=== PATIENT | male | born 1980 | race Caucasian/White ===

== ENCOUNTER 2017-02-26 15:42 | Emergency (ER) | payer MEDICAID ==
[~2017-02-26 15:42] MED LIST: AMBI5TAB PO; DOXA1 PO; FURO40TA PO; METO50TA PO; MORP20SO2 PO; MS C30TA5 PO; SENN8.6T8; SPIR50 PO; XANA1TAB6 PO
[2017-02-26 15:51] VITALS: BP 125/91; PULSE 124; RESP 16; TEMP 97.5; O2SAT 95
[2017-02-26 17:09] LABS: AUTOMATED NEUTROPHIL # 3.9 TH/MM3 (1.8-7.7); BASOPHIL % 0.6 % (0.0-2.0); EOSINOPHIL # 0.1 TH/MM3 (0-0.4); EOSINOPHIL % 1.6 % (0.0-4.0); HEMATOCRIT 40.8 % (39.0-51.0); HEMO FLAGS DIFF FINAL; LYMPH % 19.2 % (9.0-44.0); LYMPHOCYTE # 1.1 TH/MM3 (1.0-4.8); MEAN CELL VOLUME 84.2 FL (80.0-100.0); MEAN CORPUSCULAR HEMOGLOBIN 27.5 PG (27.0-34.0); MEAN CORPUSCULAR HGB CONC 32.7 % (32.0-36.0); MONO % 8.3 % (0.0-8.0); NEUT % 70.3 % (16.0-70.0); PLATELET COUNT 154 TH/MM3 (150-450); RED BLOOD COUNT 4.84 MIL/MM3 (4.50-5.90); RED CELL DISTRIBUTION WIDTH 16.9 % (11.6-17.2); WHITE BLOOD COUNT 5.6 TH/MM3 (4.0-11.0)
[2017-02-26 17:31] LABS: AMPHETAMINE, URINE NEG (NEG); BARBITURATES, URINE NEG (NEG); COCAINE, URINE NEG (NEG)
--- NOTE | 2017-02-26 17:45 | PD ---
HPI Chief Complaint: Psychiatric Symptoms Time Seen by Provider: 17:31 Travel History International Travel<30 days: No Contact w/Intl Traveler<30days: No Traveled to known affect area: No History of Present Illness HPI Patient 36-year-old male presents emergency Department under Vazquez act for evaluation of suicidal threat with a knife today. According the Vazquez act he was seen by hospice nurse holding a knife to his wrists and threatening suicide. She stepped out to call police who found him with a knife and placed him under Vazquez act. On arrival to the emergency department the patient states he has multiple medical problems including CHF and COPD which she states is at his baseline currently. He states he is always tachycardic at about 110. He denies suicidal intent today. Denies any physical complaints at this time. PFSH Past Medical History Anemia: Yes Asthma: Yes Anxiety: Yes Cancer: No Cardiovascular Problems: Yes Congestive Heart Failure: Yes Diabetes: Yes ("I AM NOT TAKING ANY MEDICATIONS") Diminished Hearing: No Genitourinary: Yes Hiatal Hernia: Yes (REPAIRED) Immune Disorder: No Kidney Stones: Yes Musculoskeletal: Yes (CHRONIC BACK) Neurologic: Yes Psychiatric: Yes Reproductive: No Respiratory: Yes Seizures: Yes (QUESTIONABLE SEIZURE) Past Surgical History Abdominal Surgery: Yes (HERNIA REPAIR, CHOLECYSTECTOMY) Cholecystectomy: Yes Other Surgery: Yes (HERNIA REPAIR AND EXPLORATORY LAP. LYMPH NODE BX NEG FOR LYMPHOMA.) Social History Alcohol Use: Yes (2 BEERS A WK) Tobacco Use: Yes (1 PPD) Substance Use: No (PT DENIES) Allergies-Medications (Allergen,Severity, Reaction): Coded Allergies: Penicillin (Unverified Allergy, Intermediate, RASH, SWELLING, 12/24/15) Darvocet-N 100 (Verified Allergy, Mild, ITCHING, 12/24/15) Reported Meds & Prescriptions Reported Meds & Active Scripts Active Reported Senna S (Sennosides-Docusate Sodium) 1 Tab Tab BID PRN Ms Contin (Morphine Sulfate) 30 Mg Tab 30 Mg PO Q8H Morphine Sulfate 20 Mg/Ml Gosia 20 Mg PO PRN Aldactone 50 Mg Tab (Spironolactone) 50 Mg Tab 50 Mg PO BID Ambien (Zolpidem Tartrate) 5 Mg Tab 5 Mg PO HS PRN Doxazosin Mesylate 2 mg (Doxazosin Mesylate) 2 Mg Tab 1 Tab PO DAILY Metoprolol Tartrate 50 mg (Metoprolol Tartrate) 50 Mg Tab 50 Mg PO DAILY Furosemide 40 Mg Tab 40 Mg PO DAILY Xanax 1 mg (Alprazolam) Alprazolam 1 mg Tab 2 Tab PO Q6H Review of Systems Except as stated in HPI: all other systems reviewed are Neg Physical Exam Narrative GENERAL: Well-developed well-nourished in no obvious distress. SKIN: No lacerations no step person soon as trunk abdomen pelvis of her extremities. His volar aspects of his forearms are covered in red pain. HEAD: Atraumatic. Normocephalic. EYES: Pupils equal and round. No scleral icterus. No injection or drainage. ENT: No nasal bleeding or discharge. Mucous membranes pink and moist. NECK: Trachea midline. No JVD. CARDIOVASCULAR: Regular rate and rhythm. No murmur appreciated. RESPIRATORY: No accessory muscle use. Coarse breath sounds bilaterally. Breath sounds equal bilaterally. On my assessment he is saturating 97% on room air and has a heart rate of 107. GASTROINTESTINAL: Abdomen soft, non-tender, nondistended. Hepatic and splenic margins not palpable. MUSCULOSKELETAL: No obvious deformities. No clubbing. No cyanosis. No edema. NEUROLOGICAL: Awake and alert. No obvious cranial nerve deficits. Motor grossly within normal limits. Normal speech. PSYCHIATRIC: Nice suicidal homicidal ideation, insight and judgment fair. States his free country and he is going to leave. Data Data Last Documented VS Vital Signs Date Time Temp Pulse Resp B/P Pulse Ox O2 Delivery O2 Flow Rate FiO2 02/26/17 19:15 71 18 136/72 97 Room Air 02/26/17 15:51 97.5 Orders Complete Blood Count With Diff (02/26/17 15:54) Comprehensive Metabolic Panel (02/26/17 15:54) Psych Screen (02/26/17 15:54) Drug Screen, Random Urine (02/26/17 15:54) Alcohol (Ethanol) (02/26/17 15:54) Chest, Single Ap (02/26/17 ) Labs Laboratory Tests Test 02/26/17 02/26/17 16:05 16:15 Urine Opiates Screen NEG Urine Barbiturates Screen NEG Urine Amphetamines Screen NEG Urine Benzodiazepines Screen POS Urine Cocaine Screen NEG Urine Cannabinoids Screen NEG White Blood Count 5.6 TH/MM3 Red Blood Count 4.84 MIL/MM3 Hemoglobin 13.3 GM/DL Hematocrit 40.8 % Mean Corpuscular Volume 84.2 FL Mean Corpuscular Hemoglobin 27.5 PG Mean Corpuscular Hemoglobin 32.7 % Concent Red Cell Distribution Width 16.9 % Platelet Count 154 TH/MM3 Mean Platelet Volume 8.0 FL Neutrophils (%) (Auto) 70.3 % Lymphocytes (%) (Auto) 19.2 % Monocytes (%) (Auto) 8.3 % Eosinophils (%) (Auto) 1.6 % Basophils (%) (Auto) 0.6 % Neutrophils # (Auto) 3.9 TH/MM3 Lymphocytes # (Auto) 1.1 TH/MM3 Monocytes # (Auto) 0.5 TH/MM3 Eosinophils # (Auto) 0.1 TH/MM3 Basophils # (Auto) 0.0 TH/MM3 CBC Comment DIFF FINAL Differential Comment Sodium Level 138 MEQ/L Potassium Level 4.0 MEQ/L Chloride Level 105 MEQ/L Carbon Dioxide Level 25.4 MEQ/L Anion Gap 8 MEQ/L Blood Urea Nitrogen 12 MG/DL Creatinine 0.85 MG/DL Estimat Glomerular Filtration 101 ML/MIN Rate Random Glucose 87 MG/DL Calcium Level 9.1 MG/DL Total Bilirubin 0.9 MG/DL Aspartate Amino Transf 21 U/L (AST/SGOT) Alanine Aminotransferase 26 U/L (ALT/SGPT) Alkaline Phosphatase 190 U/L Total Protein 9.0 GM/DL Albumin 4.0 GM/DL Ethyl Alcohol Level LESS THAN 3 MG/DL MDM Medical Decision Making Medical Screen Exam Complete: Yes Emergency Medical Condition: Yes Differential Diagnosis Suicide attempt, suicidal ideation, poor social circumstance, chronic COPD. Narrative Course Patient is a 36-year-old male presents emergency department for evaluation under Vazquez act. Patient is angry when informed that he is Vazquez acted and will have to see psychiatry. He states that he had the knife flat against his wrist and was not planning on cutting himself. He states people couldn't take Joke. According to Vazquez act documentation he was released from hospice today. He does have some rhonchorous breath sounds but declined a breathing treatment when offered. He is satting well on room air. Repeat vital signs are more acceptable. His chest x-ray shows what appears to be a poor inspiratory film with interstitial pattern. He is in no obvious respiratory distress. Upon being roomed in delta pod he has ambulated from the stretcher to the door multiple times and slamming it shot very angry at the fact that he is Vazquez acted. He is cooperative and easily redirected back to the stretcher. After labs and chest x-ray obtained the patient is medically cleared for psychiatric evaluation and disposition. He can follow up his chronic COPD with his primary care physician or the hospice doctor. Diagnosis Primary Impression: Suicidal behavior with attempted self-injury Condition: Stable Evan Hutchinson MD Feb 26, 2017 17:45
[2017-02-26 17:46] LABS: ALT (GPT) 26 U/L (12-78); ANION GAP 8 MEQ/L (5-15); AST (GOT) 21 U/L (15-37); BICARBONATE 25.4 MEQ/L (21.0-32.0); BLOOD UREA NITROGEN 12 MG/DL (7-18); CHLORIDE 105 MEQ/L (98-107); GLOMERULAR FILTRATION RATE 101 ML/MIN (>89); SODIUM (NA) 138 MEQ/L (136-145)
[2017-02-26 17:48] LABS: ALKALINE PHOSPHATASE 190 U/L (45-117); TOTAL BILIRUBIN ADULT 0.9 MG/DL (0.2-1.0)
--- NOTE | 2017-02-26 18:45 | RADRPT ---
EXAM DATE/TIME: 02/26/2017 18:14 [facility] COMPARISON: CHEST SINGLE AP, December 24, 2015, 13:36. INDICATIONS : Chest pain, shortness of breath for 24 hours MEDICAL HISTORY : Congestive heart failure. SURGICAL HISTORY : None. ENCOUNTER: Initial ACUITY: 1 day PAIN SCORE: 5/10 LOCATION: Bilateral chest FINDINGS: A single view of the chest demonstrates patchy airspace disease bilaterally which is a new finding si nce December 2015. Heart size does appear enlarged. The findings are nonspecific. The differential diagnos is includes edema and infection as well as hypersensitivity type reaction. CONCLUSION: Bilateral patchy airspace disease with some interstitial prominence. There is also cardiomegaly. The findings are nonspecific but the differential diagnosis includes edema, infection. Congestive heart f ailure could give this appearance especially given the history of such. Turner Angelo MD on February 26, 2017 at 18:41 Board Certified Radiologist. This report was verified electronically.
[2017-02-26 19:15] VITALS: BP 136/72; PULSE 71; RESP 18; O2SAT 97
[2017-02-26] MEDS ORDERED: diphenhydrAMINE HCL 50 MG/ML VIAL ONE (20:28)
[2017-02-26] MEDS ORDERED: HALOPERIDOL LACTATE 5 MG/ML AMP IM ONE (21:00)
[2017-02-26] MEDS ORDERED: diphenhydrAMINE HCL 50 MG/ML VIAL IV PUSH ONE (21:00)
[2017-02-27 02:18] VITALS: BP 114/79; PULSE 101; RESP 18; O2SAT 97
[2017-02-27 06:20] VITALS: BP 117/80; PULSE 104; RESP 20; O2SAT 97
[2017-02-27 10:00] VITALS: BP 109/72; PULSE 94; RESP 20
--- NOTE | 2017-02-27 13:40 | PD.PSY.CON ---
Provisional Diagnosis Admission Date [place]. Adjustment disorder with mixed disturbances of emotion and conduct History of Present Illness Service Psychiatry Consult Requested By EDMD Reason for Consult Vazquez act Primary Care Physician Rissa Puckett MD HPI Patient is a 36-year-old white male who comes here under Vazquez act by the [place] [employer] dated 02/18/17 at 1508 p.m. that document reviewed essentially stating that law enforcement was dispatched to [address] [place] [address] in reference to these suicidal person being called in by the hospice nurse (Brianne Lamb) upon arrival of the federal district law clerk make contact with that nurse will inform the officer that today she was at the location and eye contact with the patient will contact with the patient the nurse informed the patient that hospice is being canceled on him. Patient does not take the news well started making statements about ending his life. When the nurse asked how he told with a knife the nurse then stated she left the department for safety and to call the police as the nurses walking out of the apartment patient held a knife up to his wrists. Patient seen screened in the ED urine toxicology positive for benzodiazepines. At the present time patient sitting quietly in his room on J pod nurse aGudencio present throughout session. Patient has been on hospice because of life-threatening sequelae to his long use of intravenous Dilaudid. That ended a few years ago. He now lives directed room with his . He states that hospice told him that he was not in imminent danger of dying in the next 3 months so they canceled their services. This upset him quite a bit cause them to get angry and makes somewhat impulsive statements. He does denies suicidality homicidality voices or visions. He denies alcohol or drug use. Patient does see a psychiatrist in the community does have counseling. He does have a supportive . At the present time patient does not meet Vazquez act criteria I will lift the Vazquez act. It is okay by psychiatry for patient to be discharged to himself. No Rx by me. He may continue his medications per his outpatient psychiatrist. And continue mental health follow-up through that psychiatrist and counseling Review of Systems Constitutional: DENIES: Diaphoretic episodes, Fatigue, Fever, Weight gain, Weight loss, Chills, Dizziness, Change in appetite, Night Sweats Endocrine: DENIES: Heat/cold intolerance, Polydipsia, Polyuria, Polyphagia Eyes: DENIES: Blurred vision, Diplopia, Eye inflammation, Eye pain, Vision loss , Photosensitivity, Double Vision Ears, nose, mouth, throat: DENIES: Tinnitus, Hearing loss, Vertigo, Nasal discharge, Oral lesions, Throat pain, Hoarseness, Ear Pain, Running Nose, Epistaxis, Sinus Pain, Toothache, Odynophagia Respiratory: DENIES: Apneas, Cough, Snoring, Wheezing, Hemoptysis, Sputum production, Shortness of breath Cardiovascular: DENIES: Chest pain, Palpitations, Syncope, Dyspnea on Exertion , PND, Lower Extremity Edema, Orthopnea, Claudication Gastrointestinal: DENIES: Abdominal pain, Black stools, Bloody stools, Constipation, Diarrhea, Nausea, Vomiting, Difficulty Swallowing, Anorexia Genitourinary: DENIES: Sexual dysfunction, Urinary frequency, Urinary incontinence, Urgency, Hematuria, Dysuria, Nocturia, Penile Discharge, Testicular Pain, Testicular Swelling Musculoskeletal: DENIES: Joint pain, Muscle aches, Stiffness, Joint Swelling, Back pain, Neck pain Integumentary: DENIES: Abnormal pigmentation, Nail changes, Pruritus, Rash Hematologic/lymphatic: DENIES: Bruising, Lymphadenopathy Neurologic: DENIES: Abnormal gait, Headache, Localized weakness, Paresthesias, Seizures, Speech Problems, Tremor, Poor Balance Psychiatric: COMPLAINS OF: Anxiety Past Family Social History Coded Allergies: Penicillin (Unverified Allergy, Intermediate, RASH, SWELLING, 12/24/15) Darvocet-N 100 (Verified Allergy, Mild, ITCHING, 12/24/15) Past Medical History And somewhat irritable multiple complex please see ED documentation Unable to Obtain Active Prescriptions or Reported Meds Family History Denies any significant addictions mental health and family Social History Patient lives in boarding house with his Patient's Strengths (min. 2) Patient verbal atelectasis health care cooperative Physical Exam Patient seen screened in ED exam reviewed and agreed with the present time patient laying quietly in his bed in J pod Gloria sitting up for a glucose of some back pain. He is otherwise in no acute distress. He is in no respiratory distress. No complaints of abdominal pain. Patient moving all 4 extremities without difficulty. No abnormal motor movements noted Vital Signs Vital Signs Date Time Temp Pulse Resp B/P Pulse Ox O2 Delivery O2 Flow Rate FiO2 02/27/17 10:00 94 20 109/72 Room Air 02/27/17 06:20 97 02/26/17 15:51 97.5 Mental Status Examination Alert oriented frail-appearing somewhat disheveled white male multiple tattoos noted, is cooperative is somewhat guarded, with poor to fair eye contact Appearance Somewhat disheveled Speech: Unremarkable Orientation: x3 Memory: Unremarkable Thought Process: Logical Thought Content: Unremarkable Language Fair Fund of Knowledge Fair Hallucination Type: None (denies) Attention and Concentration: Other (fair) Suicidal Ideation: No (denies) Previous Suicide Attempts: No Homicidal Ideation: No (denies) Previous Homicide Attempts: No Insight: Poor Judgment: WNL (fair) Affect: Other (slight decreased range intensity) Mood: Euthymic (to mildly dysphoric) Motor Activity: Normal gait Assessment & Plan Problem List: (1) Adjustment disorder with mixed disturbance of emotions and conduct ICD Code: F43.25 Assessment & Plan Estimated LOS: days patient does not meet Vazquez criteria will lift Vazquez act. Is okay by psych for discharge or medically clear and stable. No Rx by me. Patient may continue his own home scheduled medications. Follow-up private psychiatrist in community Discharge Planning See above Request HC Surrog/Guard Advoc?: No Michael Rojas MD Feb 27, 2017 13:40
== END 2017-02-27 15:54 | disposition home or self-care (01) ==
LOC: NEDAMB 15:42 → NEPJ 02-27 15:54
DX: R45.851 Suicidal ideations (principal); F43.25 Adjustment disorder with mixed disturbance of emotions and conduct; R00.0 Tachycardia, unspecified; E11.9 Type 2 diabetes mellitus without complications; F17.200 Nicotine dependence, unspecified, uncomplicated; Z79.899 Other long term (current) drug therapy; Z86.2 Personal history of diseases of the blood and blood-forming organs and certain disorders involving the immune mechanism; Z87.09 Personal history of other diseases of the respiratory system; Z86.59 Personal history of other mental and behavioral disorders; Z87.448 Personal history of other diseases of urinary system; Z87.39 Personal history of other diseases of the musculoskeletal system and connective tissue; Z86.69 Personal history of other diseases of the nervous system and sense organs
CPT/HCPCS: 71010; 80053; 80307; 85025; 96372; 96374; 99284; J1200; J1630

== ENCOUNTER 2017-03-05 18:19 | Emergency (ER) | payer MEDICAID ==
[~2017-03-05] VITALS: Ht 175.3 cm; Wt 80.0 kg
[2017-03-05 18:22] VITALS: BP 129/84; PULSE 114; RESP 17; TEMP 98.4; O2SAT 98
[2017-03-05 19:41] VITALS: O2SAT 97
--- NOTE | 2017-03-05 19:44 | PD ---
HPI Chief Complaint: Chest Pain Time Seen by Provider: 19:27 Travel History International Travel<30 days: No Contact w/Intl Traveler<30days: No Traveled to known affect area: No History of Present Illness HPI 36-year-old male presents with 4 day history of chest pain that feels like pressure on the left side of his chest. He denies concurrent symptoms. He states he went to [facility] yesterday and was told he was gonna be admitted but then he got discharged. He states he was on hospice but his certificate so he is waiting for it to be reinstated. He states that he has heart failure in this is why he is on that. He states he hasn't used IV drugs May 2015. He states he feels worse when he moves around. He states he switched cardiovascular surgeons to someone in [place]. He is a poor historian which limits details PFSH Past Medical History Narrative Medical By review of records Anemia: Yes Asthma: Yes Anxiety: Yes Cancer: No Cardiovascular Problems: Yes Congestive Heart Failure: Yes Diabetes: Yes Patient Takes Glucophage: No Diminished Hearing: No Genitourinary: Yes Hiatal Hernia: Yes (REPAIRED) Immune Disorder: No Kidney Stones: Yes Musculoskeletal: Yes (CHRONIC BACK) Neurologic: Yes Psychiatric: Yes Reproductive: No Respiratory: Yes Seizures: Yes Tetanus Vaccination: < 5 Years Influenza Vaccination: No Past Surgical History Abdominal Surgery: Yes (HERNIA REPAIR, CHOLECYSTECTOMY) Cholecystectomy: Yes Other Surgery: Yes (HERNIA REPAIR AND EXPLORATORY LAP. LYMPH NODE BX NEG FOR LYMPHOMA.) Social History Alcohol Use: Yes (2 BEERS A WK) Tobacco Use: Yes (1 PPD) Substance Use: No (HX OF) Allergies-Medications (Allergen,Severity, Reaction): Coded Allergies: Penicillin (Unverified Allergy, Intermediate, RASH, SWELLING, 03/05/17) Darvocet-N 100 (Verified Allergy, Mild, ITCHING, 03/05/17) Reported Meds & Prescriptions Reported Meds & Active Scripts Active Active Prescriptions or Reported Medications Unobtainable Review of Systems ROS Limitations: Poor Historian Except as stated in HPI: all other systems reviewed are Neg Physical Exam Exam Limitations: Poor Historian Narrative GENERAL: Well-nourished, well-developed patient. SKIN: Warm and dry. HEAD: Normocephalic and atraumatic. EYES: No injection or drainage. ENT: No nasal drainage noted. NECK: Supple, trachea midline. CARDIOVASCULAR: Regular rate and rhythm RESPIRATORY: Breath sounds equal bilaterally. No accessory muscle use. GASTROINTESTINAL: Abdomen soft, non-tender NEUROLOGICAL: Awake. Motor and sensory grossly within normal limits. Normal speech. Data Data Last Documented VS Vital Signs Date Time Temp Pulse Resp B/P Pulse Ox O2 Delivery O2 Flow Rate FiO2 03/05/17 21:10 86 18 125/78 100 Nasal Cannula 2 03/05/17 18:22 98.4 Orders Electrocardiogram (03/05/17 19:27) Complete Blood Count With Diff (03/05/17 19:27) Comprehensive Metabolic Panel (03/05/17 19:27) Prothrombin Time / Inr (Pt) (03/05/17 19:27) Act Partial Throm Time (Ptt) (03/05/17 19:27) Lactic Acid Sepsis Protocol (03/05/17 19:27) Magnesium (Mg) (03/05/17 19:27) Phosphorus (Po4) (03/05/17 19:27) Ckmb (Isoenzyme) Profile (03/05/17 19:27) Troponin I (03/05/17 19:27) Urinalysis - C+S If Indicated (03/05/17 19:27) Blood Culture (03/05/17 19:27) Chest, Single Ap (03/05/17 19:27) Blood Glucose (03/05/17 19:27) Ecg Monitoring (03/05/17 19:27) Iv Access Insert/Monitor (03/05/17 19:27) Oximetry (03/05/17 19:27) Oxygen Administration (03/05/17 19:27) B-Type Natriuretic Peptide (03/05/17 19:27) Vascular Access Team Consult/P PRN (03/05/17 19:35) Vascular Poc Ultrasound (03/05/17 ) Labs Laboratory Tests Test 03/05/17 03/05/17 10:15 20:05 Urine Color YELLOW Urine Turbidity CLEAR Urine pH 6.0 Urine Specific [place] 1.020 Urine Protein TRACE mg/dL Urine Glucose (UA) NEG mg/dL Urine Ketones NEG mg/dL Urine Occult Blood NEG Urine Nitrite NEG Urine Bilirubin NEG Urine Urobilinogen 4.0 MG/DL Urine Leukocyte Esterase NEG Urine WBC 1 /hpf Microscopic Urinalysis Comment CATH-CULT NOT IND White Blood Count 3.9 TH/MM3 Red Blood Count 4.35 MIL/MM3 Hemoglobin 11.7 GM/DL Hematocrit 36.3 % Mean Corpuscular Volume 83.4 FL Mean Corpuscular Hemoglobin 27.0 PG Mean Corpuscular Hemoglobin 32.4 % Concent Red Cell Distribution Width 16.7 % Platelet Count 133 TH/MM3 Mean Platelet Volume 8.3 FL Neutrophils (%) (Auto) 61.4 % Lymphocytes (%) (Auto) 25.2 % Monocytes (%) (Auto) 11.3 % Eosinophils (%) (Auto) 1.2 % Basophils (%) (Auto) 0.9 % Neutrophils # (Auto) 2.4 TH/MM3 Lymphocytes # (Auto) 1.0 TH/MM3 Monocytes # (Auto) 0.4 TH/MM3 Eosinophils # (Auto) 0.0 TH/MM3 Basophils # (Auto) 0.0 TH/MM3 CBC Comment DIFF FINAL Differential Comment Prothrombin Time 12.2 SEC Prothromb Time International 1.1 RATIO Ratio Activated Partial 33.6 SEC Thromboplast Time Sodium Level 136 MEQ/L Potassium Level 3.4 MEQ/L Chloride Level 103 MEQ/L Carbon Dioxide Level 23.8 MEQ/L Anion Gap 9 MEQ/L Blood Urea Nitrogen 8 MG/DL Creatinine 0.90 MG/DL Estimat Glomerular Filtration 95 ML/MIN Rate Random Glucose 99 MG/DL Lactic Acid Level 1.4 mmol/L Calcium Level 8.5 MG/DL Phosphorus Level 3.1 MG/DL Magnesium Level 2.0 MG/DL Total Bilirubin 0.9 MG/DL Aspartate Amino Transf 18 U/L (AST/SGOT) Alanine Aminotransferase 23 U/L (ALT/SGPT) Alkaline Phosphatase 185 U/L Total Creatine Kinase 32 U/L Troponin I LESS THAN 0.02 NG/ML B-Type Natriuretic Peptide 134 PG/ML Total Protein 7.8 GM/DL Albumin 3.4 GM/DL MDM Medical Decision Making Medical Screen Exam Complete: Yes Emergency Medical Condition: Yes Medical Record Reviewed: Yes (past history confirmed, recent BA visit) Interpretation(s) CBC & BMP Diagram 03/05/17 20:05 Last 24 hours Impressions Chest X-Ray 03/05/171926 Signed Impressions: Service Date/Time: Sunday, March 05, 2017 19:37 - CONCLUSION: The lungs are clear. Italo Hensley MD Differential Diagnosis Endocarditis, gastritis, musculoskeletal, atypical cardiac, CHF exacerbation Narrative Course Will check blood work, chest x-ray, EKG and reevaluate 950 patient wants to leave ama, nurse at bedside, AMA: The risks of leaving against medical advice without further evaluation treatment were discussed with the patient. These risks include cardiac dysfunction, cardiac dysrhythmia, possible heart attack, possible stroke or . The patient indicated understanding of these risks and appeared to have the capacity to make this decision. Diagnosis Primary Impression: Chest pain, atypical Patient Instructions: General Instructions Additional Instructions: return at any time for completion of your testing Med/Other Pt SpecificInfo: No Change to Meds Scripts Unable to Obtain Active Prescriptions or Reported Meds Disposition: 07 AGAINST MEDICAL ADVICE Condition: Stable Yasmin Carlos MD Mar 05, 2017 19:44
--- NOTE | 2017-03-05 20:19 | RADRPT ---
EXAM DATE/TIME: 03/05/2017 19:37 [facility] COMPARISON: CHEST SINGLE AP, February 26, 2017, 18:14. INDICATIONS : Chest pain for 24 hours MEDICAL HISTORY : None. SURGICAL HISTORY : None. ENCOUNTER: Initial ACUITY: 1 day PAIN SCORE: 8/10 LOCATION: Left chest FINDINGS: A single view of the chest demonstrates the lungs to be symmetrically aerated without evidence of mas s, infiltrate or effusion. The cardiomediastinal contours are unremarkable. Osseous structures are intact. CONCLUSION: The lungs are clear. Italo Hensley MD on March 05, 2017 at 20:17 Board Certified Radiologist. This report was verified electronically.
[2017-03-05 20:29] LABS: AUTOMATED NEUTROPHIL # 2.4 TH/MM3 (1.8-7.7); BASOPHIL % 0.9 % (0.0-2.0); EOSINOPHIL % 1.2 % (0.0-4.0); HEMATOCRIT 36.3 % (39.0-51.0); HEMO FLAGS DIFF FINAL; LYMPH % 25.2 % (9.0-44.0); MEAN CELL VOLUME 83.4 FL (80.0-100.0); MEAN CORPUSCULAR HGB CONC 32.4 % (32.0-36.0); MONO % 11.3 % (0.0-8.0); NEUT % 61.4 % (16.0-70.0); PLATELET COUNT 133 TH/MM3 (150-450); RED BLOOD COUNT 4.35 MIL/MM3 (4.50-5.90); RED CELL DISTRIBUTION WIDTH 16.7 % (11.6-17.2); WHITE BLOOD COUNT 3.9 TH/MM3 (4.0-11.0)
[2017-03-05 20:46] LABS: APTT (PATIENT) 33.6 SEC (24.3-30.1); INTERNATIONAL NORMALIZED RATIO 1.1 RATIO; PROTHROMBIN TIME - PATIENT 12.2 SEC (9.8-11.6)
[2017-03-05 20:51] LABS: ANION GAP 9 MEQ/L (5-15); AST (GOT) 18 U/L (15-37); BICARBONATE 23.8 MEQ/L (21.0-32.0); BLOOD UREA NITROGEN 8 MG/DL (7-18); CHLORIDE 103 MEQ/L (98-107); GLOMERULAR FILTRATION RATE 95 ML/MIN (>89); POTASSIUM 3.4 MEQ/L (3.5-5.1); SODIUM (NA) 136 MEQ/L (136-145)
[2017-03-05 20:52] LABS: ALT (GPT) 23 U/L (12-78)
[2017-03-05 20:56] LABS: ALKALINE PHOSPHATASE 185 U/L (45-117); TOTAL BILIRUBIN ADULT 0.9 MG/DL (0.2-1.0)
[2017-03-05 21:01] LABS: CREATINE KINASE 32 U/L (39-308)
[2017-03-05 21:10] VITALS: BP 125/78; PULSE 86; RESP 18; O2SAT 100
[2017-03-05 21:29] LABS: BLOOD, URINE NEG (NEG); GLUCOSE,URINE NEG (NEG); KETONE, URINE NEG (NEG); NITRITE,URINE NEG (NEG); URINE COLOR YELLOW (YELLW/STRAW)
[2017-03-05 21:35] LABS: COMMENT (UR) CATH-CULT NOT IND; CULTURE IF INDICATED CATH CULTURE NOT IND
--- NOTE | 2017-03-06 13:17 | EKG ---
Date Performed: 03/05/2017 Time Performed: 18:37:17 PTAGE: 36 years EKG: SINUS TACHYCARDIA ABNORMAL RHYTHM ECG PREVIOUS TRACING : 12/24/2015 13.03 Since previous tracing, no significant change noted DOCTOR: Naveen Chen Interpretating Date/Time 03/06/2017 13:16:56
== END 2017-03-05 21:55 | disposition left against medical advice (07) ==
LOC: NEPC 18:19
DX: R07.89 Other chest pain (principal); E11.9 Type 2 diabetes mellitus without complications; I50.9 Heart failure, unspecified; Z88.0 Allergy status to penicillin; Z87.442 Personal history of urinary calculi
CPT/HCPCS: 71010; 76937; 80053; 81001; 82550; 83605; 83735; 83880; 84100; 84484; 85025; 85610; 85730; 87040; 87205; 93005

== ENCOUNTER 2017-06-17 15:08 | Emergency (ER) | payer MEDICAID ==
[~2017-06-17] VITALS: Ht 175.3 cm; Wt 72.0 kg
[2017-06-17 15:11] VITALS: BP 113/67; PULSE 126; RESP 18; TEMP 98.9; O2SAT 100
[2017-06-17] MEDS ORDERED: SODIUM CHLORIDE 0.9% FLUSH 10 ML FLUSH IVF PRN (16:00)
--- NOTE | 2017-06-17 16:13 | PD ---
HPI Chief Complaint: Seizure Time Seen by Provider: 15:29 Travel History International Travel<30 days: No Contact w/Intl Traveler<30days: No Traveled to known affect area: No History of Present Illness HPI 37-year-old male presents to the ED via EMS for evaluation of possible seizure. Patient states that he's been taking 2 mg Xanax daily for the past 7 or 8 months. He states he ran out of Xanax 3 days ago. He endorses history of seizure with benzodiazepine withdrawal in the past. He states that he felt as if his eyes were twitchy and has no other memory of the event. He states that his witnessed this event which happened while he was lying in bed. On arrival he is not postictal. He is alert and oriented 4. He denies headache, dizziness, chest pain, nausea, vomiting. He states that he is scheduled to undergo cardiac surgery secondary to endocarditis in the next few weeks. He is on 2 L oxygen nasal cannula when necessary at home. He states that he is prescribed Xanax by his psychologist. He was administered 4 mg of Ativan IM en route from EMS. PFSH Past Medical History Anemia: Yes Asthma: Yes Anxiety: Yes Cancer: No Cardiovascular Problems: Yes Congestive Heart Failure: Yes Diabetes: No Patient Takes Glucophage: No Diminished Hearing: No Gastrointestinal Disorders: No Genitourinary: Yes Hiatal Hernia: Yes (REPAIRED) Immune Disorder: No Implanted Vascular Access Dvce: No Kidney Stones: Yes Musculoskeletal: Yes (CHRONIC BACK) Neurologic: Yes Psychiatric: Yes Reproductive: No Respiratory: Yes Seizures: Yes Past Surgical History Abdominal Surgery: Yes (HERNIA REPAIR, CHOLECYSTECTOMY) Cholecystectomy: Yes Other Surgery: Yes (HERNIA REPAIR AND EXPLORATORY LAP. LYMPH NODE BX NEG FOR LYMPHOMA.) Social History Alcohol Use: Yes (2 BEERS A WK) Tobacco Use: Yes (1 PPD) Substance Use: Yes (abuses Xanax. Takes more than prescribed and often runs out. Previous IVDA ) Allergies-Medications (Allergen,Severity, Reaction): Coded Allergies: penicillin G (Unverified Allergy, Intermediate, RASH, SWELLING, 03/16/17) acetaminophen (Unverified Allergy, Mild, ITCHING, 03/16/17) propoxyphene (Unverified Allergy, Mild, ITCHING, 03/16/17) Reported Meds & Prescriptions Reported Meds & Active Scripts Active Active Prescriptions or Reported Medications Unobtainable Review of Systems Except as stated in HPI: all other systems reviewed are Neg Physical Exam Narrative GENERAL: Chronically ill-appearing white male in no acute distress. SKIN: Focused skin assessment warm/dry. Chronic venous stasis skin changes in the bilateral lower extremities HEAD: Normocephalic. EYES: No scleral icterus. No injection or drainage. PERRLA. EOMI. ENT: Oropharynx without erythema, edema, exudate. Airway patent. Poor dentition. NECK: Supple, trachea midline. No JVD or lymphadenopathy. CARDIOVASCULAR: Tachycardic rate and rhythm without murmurs, gallops, or rubs. RESPIRATORY: Breath sounds equal bilaterally. No accessory muscle use. GASTROINTESTINAL: Abdomen soft, non-tender, nondistended. Active bowel sounds MUSCULOSKELETAL: No cyanosis, or edema. NEUROLOGICAL: Awake and alert. Cranial nerves II through XII intact. Motor and sensory grossly within normal limits. Five out of 5 muscle strength in all muscle groups. Normal speech. BACK: Nontender without obvious deformity. No CVA tenderness. Data Data Last Documented VS Vital Signs Date Time Temp Pulse Resp B/P (MAP) Pulse Ox O2 Delivery O2 Flow Rate FiO2 06/17/17 18:03 06/17/17 16:57 115 16 98 Room Air 06/17/17 15:11 98.9 Orders Orders Complete Blood Count With Diff (06/17/17 15:48) Alcohol (Ethanol) (06/17/17 15:48) Electrocardiogram (06/17/17 ) Blood Glucose (06/17/17 15:48) Ecg Monitoring (06/17/17 15:48) Iv Access Insert/Monitor (06/17/17 15:48) Comprehensive Metabolic Panel (06/17/17 15:48) Sodium Chloride 0.9% Flush (Ns Flush) (06/17/17 16:00) Sodium Chlor 0.9% 1000 Ml Inj (Ns 1000 M (06/17/17 17:15) Potassium Chloride (Kcl) (06/17/17 17:15) Calcium Carbonate (Oscal) (06/17/17 17:15) Ed Discharge Order (06/17/17 17:33) Electrocardiogram (06/17/17 15:15) Labs Laboratory Tests Test 06/17/17 15:50 White Blood Count 5.3 TH/MM3 Red Blood Count 3.89 MIL/MM3 Hemoglobin 11.0 GM/DL Hematocrit 33.8 % Mean Corpuscular Volume 86.8 FL Mean Corpuscular Hemoglobin 28.3 PG Mean Corpuscular Hemoglobin Concent 32.6 % Red Cell Distribution Width 23.0 % Platelet Count 127 TH/MM3 Mean Platelet Volume 9.1 FL Neutrophils (%) (Auto) 52.3 % Lymphocytes (%) (Auto) 34.2 % Monocytes (%) (Auto) 11.7 % Eosinophils (%) (Auto) 0.6 % Basophils (%) (Auto) 1.2 % Neutrophils # (Auto) 2.8 TH/MM3 Lymphocytes # (Auto) 1.8 TH/MM3 Monocytes # (Auto) 0.6 TH/MM3 Eosinophils # (Auto) 0.0 TH/MM3 Basophils # (Auto) 0.1 TH/MM3 CBC Comment DIFF FINAL Differential Comment Blood Urea Nitrogen 5 MG/DL Creatinine 0.90 MG/DL Random Glucose 160 MG/DL Total Protein 7.6 GM/DL Albumin 2.7 GM/DL Calcium Level 8.0 MG/DL Alkaline Phosphatase 296 U/L Aspartate Amino Transf (AST/SGOT) 30 U/L Alanine Aminotransferase (ALT/SGPT) 22 U/L Total Bilirubin 1.3 MG/DL Sodium Level 135 MEQ/L Potassium Level 3.1 MEQ/L Chloride Level 99 MEQ/L Carbon Dioxide Level 17.3 MEQ/L Anion Gap 19 MEQ/L Estimat Glomerular Filtration Rate 94 ML/MIN Ethyl Alcohol Level LESS THAN 3 MG/DL MDM Medical Decision Making Medical Screen Exam Complete: Yes Emergency Medical Condition: Yes Differential Diagnosis Withdrawal seizure versus electrolyte abnormality versus drug seeking behavior versus other Narrative Course 37-year-old male presents to the ED via EMS for evaluation of possible seizure. Patient states that he's been taking 2 mg Xanax 3 times a day for the past 7 or 8 months. He states he ran out of Xanax 3 days ago. He endorses history of seizure with benzodiazepine withdrawal in the past. He states that he felt as if his eyes were twitchy and has no other memory of the event. He states that his witnessed this event which happened while he was lying in bed. On arrival he is not postictal. He is alert and oriented 4. He denies headache, dizziness, chest pain, nausea, vomiting. He states that he is prescribed Xanax by his psychologist. He was administered 4 mg of Ativan IM en route from EMS. Vitals reviewed. Patient is tachycardic on presentation. He states "that's my normal." He is not postictal. No focal neuro deficits. Exam is otherwise reassuring. I reviewed E[facility]CSE which reveals no recent benzodiazepine prescriptions for this patient. I suspect the patient has been getting the medication on the street illicit drug seeking behavior. No acute abnormalities on EKG, reviewed by Dr. Hutchinson. Mild hypokalemia and hypocalcemia on the blood work. This was replaced orally. Patient was administered a liter of fluids. He is monitored in the ED for a few hours. He was unable to provide a urine sample during his stay. No further seizure activity witnessed. He is stable and discharged home. Diagnosis Primary Impression: Benzodiazepine withdrawal Qualified Codes: F13.230 - Sedative, hypnotic or anxiolytic dependence with withdrawal, uncomplicated Additional Impressions: Hypokalemia Hypocalcemia Referrals: Primary Care Physician Patient Instructions: Benzodiazepine Abuse (ED), General Instructions Additional Instructions: Rest, hydrate. Return to normal, gentle activities as tolerated. Resume at home medications as prescribed. Follow-up with the primary care provider. Return to the ED for any urgent or emergent medical condition. Scripts Unable to Obtain Active Prescriptions or Reported Meds Disposition: 01 DISCHARGE HOME Condition: Stable Saige Marquez Jun 17, 2017 16:13
[2017-06-17 16:14] LABS: AUTOMATED NEUTROPHIL # 2.8 TH/MM3 (1.8-7.7); BASOPHIL # 0.1 TH/MM3 (0-0.2); BASOPHIL % 1.2 % (0.0-2.0); EOSINOPHIL % 0.6 % (0.0-4.0); HEMATOCRIT 33.8 % (39.0-51.0); HEMO FLAGS DIFF FINAL; LYMPH % 34.2 % (9.0-44.0); LYMPHOCYTE # 1.8 TH/MM3 (1.0-4.8); MEAN CELL VOLUME 86.8 FL (80.0-100.0); MEAN CORPUSCULAR HEMOGLOBIN 28.3 PG (27.0-34.0); MEAN CORPUSCULAR HGB CONC 32.6 % (32.0-36.0); MONO % 11.7 % (0.0-8.0); NEUT % 52.3 % (16.0-70.0); PLATELET COUNT 127 TH/MM3 (150-450); RED BLOOD COUNT 3.89 MIL/MM3 (4.50-5.90); WHITE BLOOD COUNT 5.3 TH/MM3 (4.0-11.0)
[2017-06-17 16:37] LABS: ALT (GPT) 22 U/L (12-78); ANION GAP 19 MEQ/L (5-15); AST (GOT) 30 U/L (15-37); BICARBONATE 17.3 MEQ/L (21.0-32.0); BLOOD UREA NITROGEN 5 MG/DL (7-18); CHLORIDE 99 MEQ/L (98-107); GLOMERULAR FILTRATION RATE 94 ML/MIN (>89); POTASSIUM 3.1 MEQ/L (3.5-5.1); SODIUM (NA) 135 MEQ/L (136-145)
[2017-06-17 16:39] LABS: ALKALINE PHOSPHATASE 296 U/L (45-117); TOTAL BILIRUBIN ADULT 1.3 MG/DL (0.2-1.0)
[2017-06-17 16:53] LABS: ALCOHOL LESS THAN 3 MG/DL (0-5)
[2017-06-17 16:57] VITALS: BP 121/76; PULSE 115; RESP 16; O2SAT 98
[2017-06-17] MEDS ORDERED: SODIUM CHLOR 0.9% 1000 ML INJ 1,000 ML IV ONE (17:15)
[2017-06-17] MEDS ORDERED: CALCIUM CARBONATE 1.25 GM (CA 500 MG) TAB PO ONE (17:15)
[2017-06-17] MEDS ORDERED: POTASSIUM CHLORIDE 20 MEQ CONTROLLED RELEASE TAB PO ONE (17:15)
--- NOTE | 2017-06-17 17:30 | PD ---
Data Data Last Documented VS Vital Signs Date Time Temp Pulse Resp B/P (MAP) Pulse Ox O2 Delivery O2 Flow Rate FiO2 06/17/17 18:03 06/17/17 16:57 115 16 98 Room Air 06/17/17 15:11 98.9 Orders Orders Complete Blood Count With Diff (06/17/17 15:48) Alcohol (Ethanol) (06/17/17 15:48) Electrocardiogram (06/17/17 ) Blood Glucose (06/17/17 15:48) Ecg Monitoring (06/17/17 15:48) Iv Access Insert/Monitor (06/17/17 15:48) Comprehensive Metabolic Panel (06/17/17 15:48) Sodium Chloride 0.9% Flush (Ns Flush) (06/17/17 16:00) Sodium Chlor 0.9% 1000 Ml Inj (Ns 1000 M (06/17/17 17:15) Potassium Chloride (Kcl) (06/17/17 17:15) Calcium Carbonate (Oscal) (06/17/17 17:15) Ed Discharge Order (06/17/17 17:33) Electrocardiogram (06/17/17 15:15) Labs Laboratory Tests Test 06/17/17 15:50 White Blood Count 5.3 TH/MM3 Red Blood Count 3.89 MIL/MM3 Hemoglobin 11.0 GM/DL Hematocrit 33.8 % Mean Corpuscular Volume 86.8 FL Mean Corpuscular Hemoglobin 28.3 PG Mean Corpuscular Hemoglobin Concent 32.6 % Red Cell Distribution Width 23.0 % Platelet Count 127 TH/MM3 Mean Platelet Volume 9.1 FL Neutrophils (%) (Auto) 52.3 % Lymphocytes (%) (Auto) 34.2 % Monocytes (%) (Auto) 11.7 % Eosinophils (%) (Auto) 0.6 % Basophils (%) (Auto) 1.2 % Neutrophils # (Auto) 2.8 TH/MM3 Lymphocytes # (Auto) 1.8 TH/MM3 Monocytes # (Auto) 0.6 TH/MM3 Eosinophils # (Auto) 0.0 TH/MM3 Basophils # (Auto) 0.1 TH/MM3 CBC Comment DIFF FINAL Differential Comment Blood Urea Nitrogen 5 MG/DL Creatinine 0.90 MG/DL Random Glucose 160 MG/DL Total Protein 7.6 GM/DL Albumin 2.7 GM/DL Calcium Level 8.0 MG/DL Alkaline Phosphatase 296 U/L Aspartate Amino Transf (AST/SGOT) 30 U/L Alanine Aminotransferase (ALT/SGPT) 22 U/L Total Bilirubin 1.3 MG/DL Sodium Level 135 MEQ/L Potassium Level 3.1 MEQ/L Chloride Level 99 MEQ/L Carbon Dioxide Level 17.3 MEQ/L Anion Gap 19 MEQ/L Estimat Glomerular Filtration Rate 94 ML/MIN Ethyl Alcohol Level LESS THAN 3 MG/DL MDM Supervised Visit with CHELSEA: Yes Narrative Course I, Dr. Hutchinson, have reviewed the advance practice practitioner's documentation and am in agreement, met with the patient face to face, made the diagnosis, and the medical decision making was done by me. *My assessment and Findings: Patient seen and examined by me in addition to Nba Marquez PA-C, the patient states that he has seizures every time he runs out of his Ativan, EMS report seizure-like activity with no true postictal phase , nonfocal on arrival no signs of trauma, he did receive Ativan 4 mg IM prior to arrival. The patient was seen in the ER stating he was about to have a seizure and held up his hand tight fist, no seizure-like activity was seen in the emergency department, is no indication for admission at this time he was urged to follow up with [facility] for substance abuse related therapy and discussed return to ED criteria. Scripts Unable to Obtain Active Prescriptions or Reported Meds Evan Hutchinson MD Jun 17, 2017 17:30
--- NOTE | 2017-06-18 18:08 | EKG ---
Date Performed: 06/17/2017 Time Performed: 15:15:46 PTAGE: 37 years EKG: SINUS TACHYCARDIA INCOMPLETE RIGHT BUNDLE BRANCH BLOCK NONSPECIFIC T-WAVE ABNORMALITY ABNOR MAL RHYTHM ECG Compared to PREVIOUS TRACING , the nonspecific T-wave change is new. PREVIOUS TRACIN03/05/2017 18. 37 DOCTOR: Kirk Carpenter Interpretating Date/Time 06/18/2017 18:08:01
--- NOTE | 2017-06-18 18:09 | EKG ---
Date Performed: 06/17/2017 Time Performed: 16:03:49 PTAGE: 37 years EKG: SINUS TACHYCARDIA POSSIBLE LEFT ATRIAL ENLARGEMENT INCOMPLETE RIGHT BUNDLE BRANCH BLOCK NON SPECIFIC T-WAVE ABNORMALITY ABNORMAL RHYTHM ECG Since PREVIOUS TRACING , no significant change noted PREVIOUS TRACIN06/17/2017 15.15 DOCTOR: Kirk Carpenter Interpretating Date/Time 06/18/2017 18:08:15
== END 2017-06-17 18:20 | disposition home or self-care (01) ==
LOC: NEPC 15:08
DX: F13.230 Sedative, hypnotic or anxiolytic dependence with withdrawal, uncomplicated (principal); E87.6 Hypokalemia; E83.51 Hypocalcemia; R56.9 Unspecified convulsions; R00.0 Tachycardia, unspecified; I45.10 Unspecified right bundle-branch block; R94.31 Abnormal electrocardiogram [ECG] [EKG]; D64.9 Anemia, unspecified; I50.9 Heart failure, unspecified
CPT/HCPCS: 80053; 80307; 85025; 93005; 99284; J7030

== ENCOUNTER 2017-12-25 08:30 | Emergency (ER) | payer MEDICAID ==
[2017-12-25 08:34] VITALS: BP 125/70; PULSE 108; RESP 22; TEMP 99; O2SAT 96
[2017-12-25 09:29] VITALS: BP 110/66; PULSE 98; RESP 18; O2SAT 96
[2017-12-25] MEDS ORDERED: SODIUM CHLORID 0.9% 500 ML INJ 500 ML IV ONE (09:45)
[2017-12-25] MEDS ORDERED: RESP: ALBUTEROL 2.5 MG/IPRATROPIUM 0.5 MG NEB (SCH) NEB ONE (09:45)
[2017-12-25] MEDS ORDERED: ALPRAZolam 1 MG TAB PO ONE (09:45)
--- NOTE | 2017-12-25 09:51 | PD ---
HPI Chief Complaint: Fever Time Seen by Provider: 09:24 Travel History International Travel<30 days: No Contact w/Intl Traveler<30days: No Traveled to known affect area: No History of Present Illness HPI The patient is a 37-year-old male who presents to the emergency department for right-sided chest pain and shortness of breath with cough. The patient has a history of previous IV drug abuse, notes a history of endocarditis with valvular. The patient states he was placed on hospice at one time, however, his symptoms have improved. The patient states he is trying to get back on the transplant list through [facility] for possible valvular replacement /repair versus heart transplant. The patient states he was admitted to [facility] several days ago for right-sided chest pain. He does not know the results of testing performed at that time but was discharged at 2 AM. He notes 4 days of productive cough producing yellow sputum, right-sided chest pain that is worse with coughing, mild shortness of breath. He also notes a chronic ventral hernia. 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 He also notes chronic lower extremity edema. He does note subjective fevers and chills. Symptoms are moderate. The patient is requesting his morning dose of Xanax. PFSH Past Medical History Anemia: Yes Asthma: Yes Anxiety: Yes Cancer: No Cardiovascular Problems: Yes Congestive Heart Failure: Yes Diabetes: No Diminished Hearing: No Gastrointestinal Disorders: No Genitourinary: Yes Hiatal Hernia: Yes (REPAIRED) Immune Disorder: No Implanted Vascular Access Dvce: No Kidney Stones: Yes Musculoskeletal: Yes (CHRONIC BACK) Neurologic: Yes Psychiatric: Yes Reproductive: No Respiratory: Yes Seizures: Yes Past Surgical History Abdominal Surgery: Yes (HERNIA REPAIR, CHOLECYSTECTOMY) Cholecystectomy: Yes Other Surgery: Yes (HERNIA REPAIR AND EXPLORATORY LAP. LYMPH NODE BX NEG FOR LYMPHOMA.) Social History Alcohol Use: Yes (2 BEERS A WK) Tobacco Use: Yes (1 PPD) Substance Use: Yes (abuses Xanax. Takes more than prescribed and often runs out. Previous IVDA ) Allergies-Medications (Allergen,Severity, Reaction): Coded Allergies: penicillin G (Unverified Allergy, Intermediate, RASH, SWELLING, 12/25/17) acetaminophen (Unverified Allergy, Mild, ITCHING, 12/25/17) propoxyphene (Unverified Allergy, Mild, ITCHING, 12/25/17) Reported Meds & Prescriptions Reported Meds & Active Scripts Active Active Prescriptions or Reported Medications Unobtainable Review of Systems Except as stated in HPI: all other systems reviewed are Neg General / Constitutional: Positive: Fever, Chills Cardiovascular: Positive: Chest Pain or Discomfort Respiratory: Positive: Cough, Shortness of Breath Gastrointestinal: Positive: Other (Ventral abdominal hernia chronic), No: Nausea, Vomiting, Abdominal Pain Musculoskeletal: Positive: Edema (Chronic lower extremity edema) Psychiatric: Positive: Substance Abuse (Quit using IV drugs in 2014 per his report) Physical Exam Narrative GENERAL: Awake, alert, nontoxic-appearing 37-year-old male who appears his stated age and is in no acute respiratory distress. SKIN: Focused skin assessment warm/dry. HEAD: Atraumatic. Normocephalic. EYES: Pupils equal and round. No scleral icterus. No injection or drainage. ENT: No nasal bleeding or discharge. Poor dentition. NECK: Trachea midline. No JVD. CARDIOVASCULAR: Regular rate and rhythm. No murmur appreciated. Heart rate in the 80s. RESPIRATORY: No accessory muscle use. Scattered rhonchi. GASTROINTESTINAL: Abdomen soft, well-healed midline incisional scar. Ventral hernia noted. MUSCULOSKELETAL: No obvious deformities. No clubbing. No cyanosis. Bilateral lower extremity edema. NEUROLOGICAL: Awake and alert. No obvious cranial nerve deficits. Motor grossly within normal limits. Normal speech. PSYCHIATRIC: Appropriate mood and affect; insight and judgment normal. Data Data Last Documented VS Vital Signs Date Time Temp Pulse Resp B/P (MAP) Pulse Ox O2 Delivery O2 Flow Rate FiO2 12/25/17 10:38 96 Room Air 12/25/17 09:29 98 18 12/25/17 08:34 99.0 Orders Orders Sepsis Workup Initiated (12/25/17 ) Electrocardiogram (12/25/17 09:34) Complete Blood Count With Diff (12/25/17 09:34) Comprehensive Metabolic Panel (12/25/17 09:34) Lactic Acid Sepsis Protocol (12/25/17 09:34) Magnesium (Mg) (12/25/17 09:34) Ckmb (Isoenzyme) Profile (12/25/17 09:34) Troponin I (12/25/17 09:34) Urinalysis - C+S If Indicated (12/25/17 09:34) Influenzae A/B Antigen (12/25/17:34) Blood Culture (12/25/17:34) Chest, Pa & Lat (12/25/17 09:34) Blood Glucose (12/25/17:34) Ecg Monitoring (12/25/17:34) Iv Access Insert/Monitor (12/25/17:34) Oximetry (12/25/17:34) Oxygen Administration (12/25/17 09:34) Sodium Chlorid 0.9% 500 Ml Inj (Ns 500 M (12/25/17 09:45) Albuterol-Ipratropium Neb (Duoneb Neb) (12/25/17 09:45) Alprazolam (Xanax) (12/25/17 09:45) Ed Discharge Order (12/25/17 11:44) Labs Laboratory Tests Test 12/25/17 10:00 White Blood Count 5.3 TH/MM3 Red Blood Count 3.98 MIL/MM3 Hemoglobin 9.5 GM/DL Hematocrit 30.3 % Mean Corpuscular Volume 76.1 FL Mean Corpuscular Hemoglobin 23.8 PG Mean Corpuscular Hemoglobin Concent 31.3 % Red Cell Distribution Width 18.4 % Platelet Count 99 TH/MM3 Mean Platelet Volume 9.1 FL Neutrophils (%) (Auto) 73.1 % Lymphocytes (%) (Auto) 14.4 % Monocytes (%) (Auto) 12.1 % Eosinophils (%) (Auto) 0.1 % Basophils (%) (Auto) 0.3 % Neutrophils # (Auto) 3.9 TH/MM3 Lymphocytes # (Auto) 0.8 TH/MM3 Monocytes # (Auto) 0.6 TH/MM3 Eosinophils # (Auto) 0.0 TH/MM3 Basophils # (Auto) 0.0 TH/MM3 CBC Comment AUTO DIFF Differential Comment AUTO DIFF CONFIRMED Platelet Estimate LOW Platelet Morphology Comment NORMAL Ovalocytes 1+ Urine Color YAQUELIN Urine Turbidity CLEAR Urine pH 6.0 Urine Specific Dana 1.021 Urine Protein TRACE mg/dL Urine Glucose (UA) NEG mg/dL Urine Ketones NEG mg/dL Urine Occult Blood NEG Urine Nitrite NEG Urine Bilirubin NEG Urine Urobilinogen GREATER THAN 12.0 MG/DL Urine Leukocyte Esterase NEG Urine RBC LESS THAN 1 /hpf Urine WBC 1 /hpf Urine Bacteria OCC /hpf Urine Mucus FEW /lpf Microscopic Urinalysis Comment CULT NOT INDICATED Blood Urea Nitrogen 13 MG/DL Creatinine 0.80 MG/DL Random Glucose 103 MG/DL Total Protein 6.6 GM/DL Albumin 2.7 GM/DL Calcium Level 7.6 MG/DL Magnesium Level 2.0 MG/DL Alkaline Phosphatase 196 U/L Aspartate Amino Transf (AST/SGOT) 26 U/L Alanine Aminotransferase (ALT/SGPT) 15 U/L Total Bilirubin 1.3 MG/DL Sodium Level 133 MEQ/L Potassium Level 3.4 MEQ/L Chloride Level 100 MEQ/L Carbon Dioxide Level 24.6 MEQ/L Anion Gap 8 MEQ/L Estimat Glomerular Filtration Rate 108 ML/MIN Lactic Acid Level 1.1 mmol/L Total Creatine Kinase 47 U/L Troponin I LESS THAN 0.02 NG/ML MDM Medical Decision Making Medical Screen Exam Complete: Yes Emergency Medical Condition: Yes Medical Record Reviewed: Yes Interpretation(s) EKG reveals normal sinus rhythm with a rate 88. RSR prime in block. Inverted T waves noted in V2, V3, and lead III. Last Impressions Chest X-Ray 12/25/17 0986 Signed Impressions: CONCLUSION: No acute intrathoracic disease. Stable exam. Date/Time Source Procedure Growth Status 12/25/17 10:10 Blood Peripheral Aerobic Blood Culture Pending Received 12/25/17 10:10 Blood Peripheral Anaerobic Blood Culture Pending Received 12/25/17 10:00 Blood Peripheral Aerobic Blood Culture Pending Received 12/25/17 10:00 Blood Peripheral Anaerobic Blood Culture Pending Received 12/25/17 10:00 Nasal Aspirate Influenza Types A,B Antigen (JERRY) - Final NEGATIVE FOR FLU A AND B ANTIGEN.... Complete Laboratory Tests Test 12/25/17 10:00 White Blood Count 5.3 TH/MM3 Red Blood Count 3.98 MIL/MM3 Hemoglobin 9.5 GM/DL Hematocrit 30.3 % Mean Corpuscular Volume 76.1 FL Mean Corpuscular Hemoglobin 23.8 PG Mean Corpuscular Hemoglobin Concent 31.3 % Red Cell Distribution Width 18.4 % Platelet Count 99 TH/MM3 Mean Platelet Volume 9.1 FL Neutrophils (%) (Auto) 73.1 % Lymphocytes (%) (Auto) 14.4 % Monocytes (%) (Auto) 12.1 % Eosinophils (%) (Auto) 0.1 % Basophils (%) (Auto) 0.3 % Neutrophils # (Auto) 3.9 TH/MM3 Lymphocytes # (Auto) 0.8 TH/MM3 Monocytes # (Auto) 0.6 TH/MM3 Eosinophils # (Auto) 0.0 TH/MM3 Basophils # (Auto) 0.0 TH/MM3 CBC Comment AUTO DIFF Differential Comment AUTO DIFF CONFIRMED Platelet Estimate LOW Platelet Morphology Comment NORMAL Ovalocytes 1+ Urine Color YAQUELIN Urine Turbidity CLEAR Urine pH 6.0 Urine Specific Dana 1.021 Urine Protein TRACE mg/dL Urine Glucose (UA) NEG mg/dL Urine Ketones NEG mg/dL Urine Occult Blood NEG Urine Nitrite NEG Urine Bilirubin NEG Urine Urobilinogen GREATER THAN 12.0 MG/DL Urine Leukocyte Esterase NEG Urine RBC LESS THAN 1 /hpf Urine WBC 1 /hpf Urine Bacteria OCC /hpf Urine Mucus FEW /lpf Microscopic Urinalysis Comment CULT NOT INDICATED Blood Urea Nitrogen 13 MG/DL Creatinine 0.80 MG/DL Random Glucose 103 MG/DL Total Protein 6.6 GM/DL Albumin 2.7 GM/DL Calcium Level 7.6 MG/DL Magnesium Level 2.0 MG/DL Alkaline Phosphatase 196 U/L Aspartate Amino Transf (AST/SGOT) 26 U/L Alanine Aminotransferase (ALT/SGPT) 15 U/L Total Bilirubin 1.3 MG/DL Sodium Level 133 MEQ/L Potassium Level 3.4 MEQ/L Chloride Level 100 MEQ/L Carbon Dioxide Level 24.6 MEQ/L Anion Gap 8 MEQ/L Estimat Glomerular Filtration Rate 108 ML/MIN Lactic Acid Level 1.1 mmol/L Total Creatine Kinase 47 U/L Troponin I LESS THAN 0.02 NG/ML Differential Diagnosis Differential diagnosis includes endocarditis, septic emboli, pneumonia, bronchitis, pleural effusion, influenza, sepsis. Narrative Course IV was established, labs are drawn and sent, the patient was placed on cardiac telemetry monitoring and continuous pulse oximetry monitoring. EKG was ordered and interpreted. Chest x-ray was obtained. The patient was administered normal saline 500 cc and duo nebs 2. Chest x-ray is unremarkable. Patient's WBC and lactic acid are unremarkable. Troponin is negative. CMP reveals mildly elevated bilirubin level and low albumin level, may be mild liver disease. The patient's vitals are normal. Patient stable for outpatient follow -up, will be treated for bronchitis. He is advised to stop smoking and follow- up with his primary physician. Diagnosis Primary Impression: Bronchitis Additional Impression: Chest pain, atypical Patient Instructions: General Instructions Additional Instructions: Medications as directed. Stop smoking. Follow-up with your primary physician. Return if symptoms worsen or progress. Med/Other Pt SpecificInfo: Prescription(s) given Scripts Albuterol 8.5 GM Inh (Proair Hfa 8.5 GM Inh) 90 Mcg/Act Aer 2 PUFF INH Q6H Y for SHORTNESS OF BREATH, #1 INHALER 0 Refills 108 mcg/actuation Prov: Dayton Jain MD 12/25/17 Azithromycin (Zithromax Z-Eleazar) 250 Mg Dspk 250 MG PO DIRECTED for Infection, #1 DSPK 0 Refills 500 MG (2 tabs) day 1, then 1 tab days 2-5. Prov: Dayton Jain MD 12/25/17 Disposition: 01 DISCHARGE HOME Condition: Stable Dayton Jain MD December 25, 2017 09:51
[2017-12-25 10:34] LABS: AUTOMATED NEUTROPHIL # 3.9 TH/MM3 (1.8-7.7); BASOPHIL % 0.3 % (0.0-2.0); EOSINOPHIL % 0.1 % (0.0-4.0); HEMATOCRIT 30.3 % (39.0-51.0); HEMOGLOBIN 9.5 GM/DL (13.0-17.0); LYMPH % 14.4 % (9.0-44.0); LYMPHOCYTE # 0.8 TH/MM3 (1.0-4.8); MEAN CELL VOLUME 76.1 FL (80.0-100.0); MEAN CORPUSCULAR HEMOGLOBIN 23.8 PG (27.0-34.0); MEAN CORPUSCULAR HGB CONC 31.3 % (32.0-36.0); MEAN PLATELET VOLUME 9.1 FL (7.0-11.0); MONO % 12.1 % (0.0-8.0); MONOCYTE # 0.6 TH/MM3 (0-0.9); NEUT % 73.1 % (16.0-70.0); PLATELET COUNT 99 TH/MM3 (150-450); RED BLOOD COUNT 3.98 MIL/MM3 (4.50-5.90); RED CELL DISTRIBUTION WIDTH 18.4 % (11.6-17.2); WHITE BLOOD COUNT 5.3 TH/MM3 (4.0-11.0)
[2017-12-25 10:38] VITALS: O2SAT 96
--- NOTE | 2017-12-25 10:40 | RADRPT ---
EXAM DATE: 12/25/2017 10:28 AM EDT AGE/SEX: 37 years / Male INDICATIONS: Cough with fever. CLINICAL DATA: This is the patient's initial encounter. Patient reports that signs and symptoms have been present for 1 week and indicates a pain score of 6/10. MEDICAL/SURGICAL HISTORY: None. None. COMPARISON: [facility], CHEST SINGLE AP, 03/05/2017. . FINDINGS: PA and lateral views of the chest demonstrate the lungs to be symmetrically aerated without evidence of mass, infiltrate or effusion. The cardiomediastinal contours are unremarkable. Osseous structures are intact. CONCLUSION: No acute intrathoracic disease. Stable exam. Electronically signed by: Enrique Campbell MD 12/25/2017 10:39 AM EDT
[2017-12-25 10:53] LABS: ALBUMIN 2.7 GM/DL (3.4-5.0); ALT (GPT) 15 U/L (12-78); AST (GOT) 26 U/L (15-37); BICARBONATE 24.6 MEQ/L (21.0-32.0); BLOOD UREA NITROGEN 13 MG/DL (7-18); CALCIUM 7.6 MG/DL (8.5-10.1); CHLORIDE 100 MEQ/L (98-107); GLOMERULAR FILTRATION RATE 108 ML/MIN (>89); GLUCOSE,RANDOM 103 MG/DL (74-106); SODIUM (NA) 133 MEQ/L (136-145)
[2017-12-25 10:55] LABS: BACTERIA, URINE OCC /hpf; BLOOD, URINE NEG (NEG); GLUCOSE,URINE NEG (NEG); KETONE, URINE NEG (NEG); MUCUS URINE FEW /lpf (OCC); NITRITE,URINE NEG (NEG); URINE LEUKOCYTE ESTERASE NEG (NEG)
[2017-12-25 10:57] LABS: ALKALINE PHOSPHATASE 196 U/L (45-117); TOTAL BILIRUBIN ADULT 1.3 MG/DL (0.2-1.0); TOTAL PROTEIN 6.6 GM/DL (6.4-8.2); TROPONIN I LESS THAN 0.02 NG/ML (0.02-0.05)
[2017-12-25 11:12] LABS: OVALOCYTES 1+ (NORMAL)
[2017-12-25 11:18] LABS: BILIRUBIN, URINE NEG (NEG); URINE COLOR AMBER (YELLW/STRAW)
[2017-12-25] MEDS ORDERED: ZITHTAB PO (11:47)
[2017-12-25] MEDS ORDERED: ALBUAER3 INH (11:47)
[2017-12-25 12:25] VITALS: BP 112/64
--- NOTE | 2017-12-26 14:21 | EKG ---
Date Performed: 12/25/2017 Time Performed: 10:50:00 PTAGE: 37 years EKG: Sinus rhythm INCOMPLETE RIGHT BUNDLE BRANCH BLOCK NONSPECIFIC T-WAVE CHANGE WHICH MAY BE DUE TO THE BUNDLE BRANCH BLOCK ABNORMAL ECG Compared to PREVIOUS TRACING , heart rate is slower, T-wave changes leads V1-V3 are new, but are nons pecific. PREVIOUS TRACIN06/17/2017 16.03 DOCTOR: Kirk Carpenter Interpretating Date/Time 12/26/2017 14:20:19
== END 2017-12-25 12:27 | disposition home or self-care (01) ==
LOC: NEPE 08:30
DX: J40 Bronchitis, not specified as acute or chronic (principal); F17.210 Nicotine dependence, cigarettes, uncomplicated; I50.9 Heart failure, unspecified
CPT/HCPCS: 71046; 80053; 81001; 82550; 83605; 83735; 84484; 85025; 86403; 87040; 87077; 87186; 87205; 87804; 93005; 94664; 96360; J7040

== ENCOUNTER 2017-12-27 09:48 | Inpatient (IN) | payer MEDICAID ==
[2017-12-27] VITALS (9 sets, daily range): BP systolic 98–128; BP diastolic 57–84; PULSE 82–102; RESP 17–26; TEMP 97.8–98.8; O2SAT 92–99
[~2017-12-27] VITALS: Ht 172.7 cm; Wt 73.9 kg
[~2017-12-27 09:48] MED LIST changes: +ALBUAER3 INH; -AMBI5TAB PO; -DOXA1 PO; -FURO40TA PO; -METO50TA PO; -MORP20SO2 PO; -MS C30TA5 PO; -SENN8.6T8; -SPIR50 PO; -XANA1TAB6 PO; +ZITHTAB PO
--- NOTE | 2017-12-27 10:37 | RADRPT ---
EXAM DATE: 12/27/2017 10:33 AM EDT AGE/SEX: 37 years / Male INDICATIONS: Chronic shortness of breath,cough CLINICAL DATA: This is the patient's initial encounter. Patient reports that signs and symptoms have been present for > 1 year and indicates a pain score of 0/10. MEDICAL/SURGICAL HISTORY: Chronic obstructive pulmonary disease. . COMPARISON: [facility] – [place], CHEST SINGLE AP, 03/05/2017. . FINDINGS: A single AP view of the chest demonstrates density in the right upper lobe. Left lung clear. Heart no rmal in size. The cardiomediastinal contours are unremarkable. Osseous structures are intact. CONCLUSION: Density right upper lobe. Recommend medical treatment and follow-up with serial x-rays to ensure comp lete resolution. Electronically signed by: Randall Webb MD 12/27/2017 10:35 AM EDT
[2017-12-27] MEDS ORDERED: SENN8.6T36 PO (10:42)
[2017-12-27] MEDS ORDERED: METO50TA PO (10:42)
[2017-12-27] MEDS ORDERED: TRAZ50TA12 PO (10:42)
[2017-12-27] MEDS ORDERED: AMBI5TAB PO (10:42)
[2017-12-27] MEDS ORDERED: ALBU0.08 NEB (10:42)
[2017-12-27] MEDS ORDERED: XANA2TAB2 PO (10:42)
[2017-12-27] MEDS ORDERED: DOXA1TAB35 PO (10:44)
[2017-12-27] MEDS ORDERED: FURO40TA PO (10:44)
[2017-12-27] MEDS ORDERED: AZTREONAM INJ 2,000 MG in SODIUM CHLORIDE 0.9% INJ 100 ML IV ONE (10:45)
[2017-12-27] MEDS ORDERED: VANCOMYCIN INJ 1,000 MG in SODIUM CHLOR 0.9% 250 ML INJ 250 ML IV ONE (10:45)
--- NOTE | 2017-12-27 10:56 | PD ---
HPI Chief Complaint: Abnormal Results Time Seen by Provider: 10:05 Travel History International Travel<30 days: No Contact w/Intl Traveler<30days: No Traveled to known affect area: No History of Present Illness HPI 37-year-old male presents emergency department for evaluation of abnormal blood work. Patient was here 2 days ago diagnosed with bronchitis but given his history of IV drug abuse and endocarditis blood culture bottles were sent. He was called back to the emergency department because 3 of the 4 blood culture bottles turned positive for coagulase positive staph. Patient states has not used IV drugs in 3 years since he was diagnosed with endocarditis, he continues to smoke and he is using Xanax 2 mg 3 times daily. He states he has an appointment with [facility] next month to consider valve replacement versus heart transplant. He states he has continued to have cough congestion and some intermittent bloody sputum. No nausea no vomiting no abdominal pain no skin lesions seen. states symptoms are moderate, for the past few days, context and associated signs symptoms as above. PFSH Past Medical History Anemia: Yes Asthma: Yes Anxiety: Yes Cancer: No Cardiovascular Problems: Yes Congestive Heart Failure: Yes Diabetes: No Diminished Hearing: No Gastrointestinal Disorders: No Genitourinary: Yes Hiatal Hernia: Yes (REPAIRED) Immune Disorder: No Implanted Vascular Access Dvce: No Kidney Stones: Yes Musculoskeletal: Yes (CHRONIC BACK) Neurologic: Yes Psychiatric: Yes Reproductive: No Respiratory: Yes Seizures: Yes Past Surgical History Abdominal Surgery: Yes (HERNIA REPAIR, CHOLECYSTECTOMY) Cholecystectomy: Yes Other Surgery: Yes (HERNIA REPAIR AND EXPLORATORY LAP. LYMPH NODE BX NEG FOR LYMPHOMA.) Social History Alcohol Use: Yes Tobacco Use: Yes (1/2 PPD) Substance Use: Yes (abuses Xanax. Takes more than prescribed and often runs out. Previous IVDA ) Allergies-Medications (Allergen,Severity, Reaction): Coded Allergies: penicillin G (Unverified Allergy, Intermediate, RASH, SWELLING, 12/27/17) acetaminophen (Unverified Allergy, Mild, ITCHING, 12/27/17) propoxyphene (Unverified Allergy, Mild, ITCHING, 12/27/17) Reported Meds & Prescriptions Reported Meds & Active Scripts Active Proair Hfa 8.5 GM Inh (Albuterol Sulfate) 90 Mcg/Act Aer 2 Puff INH Q6H PRN 108 mcg/actuation Zithromax Z-Eleazar (Azithromycin) 250 Mg Dspk 250 Mg PO DIRECTED 500 MG (2 tabs) day 1, then 1 tab days 2-5. Reported Doxazosin (Doxazosin Mesylate) 2 Mg Tab 2 Mg PO DAILY Furosemide 40 Mg Tab 40 Mg PO DAILY Albuterol Neb (Albuterol Sulfate) 2.5 Mg/3 Ml Neb 2.5 Mg NEB Q4HR PRN Senna-Tabs (Sennosides) 8.6 Mg Tab 8.6 Mg PO DAILY PRN Ambien (Zolpidem Tartrate) 5 Mg Tab 5 Mg PO HS Trazodone (Trazodone HCl) 50 Mg Tab 50 Mg PO HS PRN Xanax (Alprazolam) 2 Mg Tab 2 Mg PO TID Metoprolol Tartrate 50 Mg Tab 40 Mg PO HS Review of Systems Except as stated in HPI: all other systems reviewed are Neg Physical Exam Narrative GENERAL: Well-developed well-nourished 29-year-old male who appears much older than stated age in no obvious distress SKIN: Focused skin assessment warm/dry. No track proctor seen on his person peer HEAD: Atraumatic. Normocephalic. EYES: Pupils equal and round. No scleral icterus. No injection or drainage. ENT: No nasal bleeding or discharge. Mucous membranes pink and moist. NECK: Trachea midline. No JVD. CARDIOVASCULAR: Regular rate and rhythm. No murmur appreciated. No murmurs gallops or rubs heard. RESPIRATORY: No accessory muscle use. Clear to auscultation. Breath sounds equal bilaterally. GASTROINTESTINAL: Abdomen soft, non-tender, nondistended. Hepatic and splenic margins not palpable. MUSCULOSKELETAL: No obvious deformities. No clubbing. No cyanosis. No edema. NEUROLOGICAL: Awake and alert. No obvious cranial nerve deficits. Motor grossly within normal limits. Normal speech. PSYCHIATRIC: Appropriate mood and affect; insight and judgment normal. Data Data Last Documented VS Vital Signs Date Time Temp Pulse Resp B/P (MAP) Pulse Ox O2 Delivery O2 Flow Rate FiO2 12/27/17 13:00 84 24 121/67 (85) 93 Room Air 12/27/17 10:00 98.6 Orders Orders Sepsis Workup Initiated (12/27/17 ) Complete Blood Count With Diff (12/27/17 10:05) Comprehensive Metabolic Panel (12/27/17 10:05) Prothrombin Time / Inr (Pt) (12/27/17 10:05) Act Partial Throm Time (Ptt) (12/27/17 10:05) Lactic Acid Sepsis Protocol (12/27/17 10:05) Magnesium (Mg) (12/27/17 10:05) Phosphorus (Po4) (12/27/17 10:05) Lipase (12/27/17 10:05) Ckmb (Isoenzyme) Profile (12/27/17 10:05) Troponin I (12/27/17 10:05) Urinalysis - C+S If Indicated (12/27/17 10:05) Blood Culture (12/27/17 10:05) Chest, Single Ap (12/27/17 10:05) Ecg Monitoring (12/27/17 10:05) Iv Access Insert/Monitor (12/27/17 10:05) Oximetry (12/27/17 10:05) Oxygen Administration (12/27/17 10:05) Drug Screen, Random Urine (12/27/17 10:38) Vancomycin Inj (Vancomycin Inj) (12/27/17 10:45) Aztreonam Inj (Azactam Inj) (12/27/17 10:45) Alprazolam (Xanax) (12/27/17 13:15) Diet Heart Healthy (12/27/17 Lunch) Admit Order (Ed Use Only) (12/27/17 ) Labs Laboratory Tests Test 12/27/17 10:30 12/27/17 11:00 White Blood Count 5.8 TH/MM3 Red Blood Count 4.04 MIL/MM3 Hemoglobin 9.5 GM/DL Hematocrit 30.6 % Mean Corpuscular Volume 75.6 FL Mean Corpuscular Hemoglobin 23.5 PG Mean Corpuscular Hemoglobin Concent 31.1 % Red Cell Distribution Width 18.9 % Platelet Count 118 TH/MM3 Mean Platelet Volume 9.4 FL Neutrophils (%) (Auto) 69.7 % Lymphocytes (%) (Auto) 18.1 % Monocytes (%) (Auto) 11.1 % Eosinophils (%) (Auto) 0.6 % Basophils (%) (Auto) 0.5 % Neutrophils # (Auto) 4.1 TH/MM3 Lymphocytes # (Auto) 1.1 TH/MM3 Monocytes # (Auto) 0.6 TH/MM3 Eosinophils # (Auto) 0.0 TH/MM3 Basophils # (Auto) 0.0 TH/MM3 CBC Comment DIFF FINAL Differential Comment Erythrocyte Sedimentation Rate 22 mm/hr Prothrombin Time 12.9 SEC Prothromb Time International Ratio 1.3 RATIO Activated Partial Thromboplast Time 37.9 SEC Blood Urea Nitrogen 8 MG/DL Creatinine 0.77 MG/DL Random Glucose 124 MG/DL Total Protein 6.7 GM/DL Albumin 2.7 GM/DL Calcium Level 7.6 MG/DL Phosphorus Level 2.6 MG/DL Magnesium Level 1.9 MG/DL Alkaline Phosphatase 196 U/L Aspartate Amino Transf (AST/SGOT) 35 U/L Alanine Aminotransferase (ALT/SGPT) 16 U/L Total Bilirubin 1.3 MG/DL Sodium Level 131 MEQ/L Potassium Level 3.4 MEQ/L Chloride Level 97 MEQ/L Carbon Dioxide Level 26.3 MEQ/L Anion Gap 8 MEQ/L Estimat Glomerular Filtration Rate 113 ML/MIN Lactic Acid Level 2.3 mmol/L Direct Bilirubin 0.6 MG/DL Indirect Bilirubin 0.8 MG/DL Total Creatine Kinase 93 U/L Troponin I LESS THAN 0.02 NG/ML Lipase 143 U/L Urine Color YELLOW Urine Turbidity CLEAR Urine pH 6.0 Urine Specific [place] 1.013 Urine Protein TRACE mg/dL Urine Glucose (UA) NEG mg/dL Urine Ketones NEG mg/dL Urine Occult Blood NEG Urine Nitrite NEG Urine Bilirubin NEG Urine Urobilinogen 4.0 MG/DL Urine Leukocyte Esterase NEG Urine RBC 1 /hpf Urine WBC LESS THAN 1 /hpf Urine Mucus FEW /lpf Microscopic Urinalysis Comment CATH-CULT NOT IND Urine Opiates Screen NEG Urine Barbiturates Screen NEG Urine Amphetamines Screen NEG Urine Benzodiazepines Screen POS Urine Cocaine Screen NEG Urine Cannabinoids Screen NEG [facility] Medical Decision Making Medical Screen Exam Complete: Yes Emergency Medical Condition: Yes Differential Diagnosis Endocarditis, bacteremia, sepsis. Narrative Course Patient room to the emergency department, labs are reassuring here, started on vancomycin and Azactam given penicillin allergy. Patient was discussed with [facility] for admission to rule out endocarditis. Patient was given Xanax per his request. Discussed results with him and he is agreeable. Diagnosis Primary Impression: Bacteremia Additional Impression: History of endocarditis Admitting Information Admitting Physician Requests: Admit Condition: Stable Evan Hutchinson MD December 27, 2017 10:56
[2017-12-27 11:14] LABS: AUTOMATED NEUTROPHIL # 4.1 TH/MM3 (1.8-7.7); BASOPHIL % 0.5 % (0.0-2.0); EOSINOPHIL % 0.6 % (0.0-4.0); HEMATOCRIT 30.6 % (39.0-51.0); HEMOGLOBIN 9.5 GM/DL (13.0-17.0); LYMPH % 18.1 % (9.0-44.0); LYMPHOCYTE # 1.1 TH/MM3 (1.0-4.8); MEAN CELL VOLUME 75.6 FL (80.0-100.0); MEAN CORPUSCULAR HEMOGLOBIN 23.5 PG (27.0-34.0); MEAN CORPUSCULAR HGB CONC 31.1 % (32.0-36.0); MEAN PLATELET VOLUME 9.4 FL (7.0-11.0); MONO % 11.1 % (0.0-8.0); MONOCYTE # 0.6 TH/MM3 (0-0.9); NEUT % 69.7 % (16.0-70.0); PLATELET COUNT 118 TH/MM3 (150-450); RED BLOOD COUNT 4.04 MIL/MM3 (4.50-5.90); RED CELL DISTRIBUTION WIDTH 18.9 % (11.6-17.2); WHITE BLOOD COUNT 5.8 TH/MM3 (4.0-11.0)
[2017-12-27 11:24] LABS: INTERNATIONAL NORMALIZED RATIO 1.3 RATIO; PROTHROMBIN TIME - PATIENT 12.9 SEC (9.8-11.6)
[2017-12-27 11:31] LABS: BILIRUBIN, URINE NEG (NEG); BLOOD, URINE NEG (NEG); GLUCOSE,URINE NEG (NEG); KETONE, URINE NEG (NEG); MUCUS URINE FEW /lpf (OCC); NITRITE,URINE NEG (NEG); URINE COLOR YELLOW (YELLW/STRAW); URINE LEUKOCYTE ESTERASE NEG (NEG)
[2017-12-27 11:40] LABS: LACTIC ACID SEPSIS PROTOCOL 2.3 mmol/L (0.4-2.0)
[2017-12-27 11:49] LABS: ALBUMIN 2.7 GM/DL (3.4-5.0); ALKALINE PHOSPHATASE 196 U/L (45-117); ALT (GPT) 16 U/L (12-78); AST (GOT) 35 U/L (15-37); BICARBONATE 26.3 MEQ/L (21.0-32.0); BLOOD UREA NITROGEN 8 MG/DL (7-18); CALCIUM 7.6 MG/DL (8.5-10.1); CHLORIDE 97 MEQ/L (98-107); CREATININE 0.77 MG/DL (0.60-1.30); GLOMERULAR FILTRATION RATE 113 ML/MIN (>89); GLUCOSE,RANDOM 124 MG/DL (74-106); MAGNESIUM 1.9 MG/DL (1.5-2.5); PHOSPHORUS 2.6 MG/DL (2.5-4.9); SODIUM (NA) 131 MEQ/L (136-145); TOTAL BILIRUBIN ADULT 1.3 MG/DL (0.2-1.0); TOTAL PROTEIN 6.7 GM/DL (6.4-8.2); TROPONIN I LESS THAN 0.02 NG/ML (0.02-0.05)
[2017-12-27] MEDS ORDERED: ALPRAZolam 1 MG TAB PO ONE (13:15)
[2017-12-27] MEDS ORDERED: SODIUM CHLORIDE 0.9% FLUSH 10 ML FLUSH IV FLUSH PRN (13:30)
[2017-12-27] MEDS ORDERED: NALOXONE HCL 0.4 MG/ML AMP IV PUSH PRN (13:30)
[2017-12-27] MEDS ORDERED: BISACODYL 10 MG SUPP RECTAL PRN (13:30)
[2017-12-27] MEDS ORDERED: MAGNESIUM HYDROXIDE SUSP 30 ML CUP PO PRN (13:30)
[2017-12-27] MEDS ORDERED: LACTULOSE SYRUP 20 GM/30 ML CUP PO PRN (13:30)
[2017-12-27] MEDS ORDERED: SENNOSIDES 8.6 MG TAB PO PRN ×2 (13:30→13:45)
[2017-12-27] MEDS ORDERED: PROCHLORPERAZINE 25 MG SUPP RECTAL PRN (13:30)
[2017-12-27] MEDS ORDERED: VANCOMYCIN INJ 1,000 MG in SODIUM CHLOR 0.9% 250 ML INJ 250 ML IV SCH (13:30)
[2017-12-27] MEDS ORDERED: Vancomycin Consult Pharmacy 1 EA OTHER SCH (13:30)
[2017-12-27] MEDS ORDERED: POTASSIUM CHLORIDE 20 MEQ CONTROLLED RELEASE TAB PO ONE (13:45)
[2017-12-27] MEDS ORDERED: RESP: ALBUTEROL 2.5 MG/3 ML NEB (PRN) NEB (13:45)
[2017-12-27] MEDS ORDERED: traZODone HCL 50 MG TAB PO PRN (13:45)
[2017-12-27] MEDS ORDERED: THIAMINE HCL 100 MG TAB PO ONE (14:00)
--- NOTE | 2017-12-27 15:41 | HHI.HP ---
HPI Service [facility] Primary Care Physician No Primary Care Physician Admission Diagnosis Bacteremia, R/O Endocarditis. Diagnoses: Travel History International Travel<30 Days: No Contact w/Intl Traveler <30 Da: No Traveled to Known Affected Are: No History of Present Illness 37-year-old male with a history of IV drug use, osteomyelitis over one year ago , CHF previously graduating from hospice several months ago who presents with a 3 day history of cough productive of yellowish sputum with some blood, shortness of breath, fevers up to 104, fatigue and lightheadedness without syncope. Patient denies any chest pain. Denies any nausea or vomiting. Patient initially visited the ER on 12/25 and was sent home on antibiotics which he did not take. 3 out of 4 blood cultures performed on 12/25 returned positive for coag negative staph and patient was called to return to the hospital. Patient reports continued worsening of shortness of breath, fatigue. 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 There appears to be exposed bone. He reports dull pain at the area of the thumb, however denies any worsening recently. He says he is wondering if this is where the infection came from. Patient with chronic poor dentition, however denies any recent dental pain. Patient denies recent IV drug use. Review of Systems Except as stated in HPI: all other systems reviewed are Neg Past Family Social History Past Medical History CHF COPD Endocarditis Depression Past Surgical History Hernia surgery Exploratory laparotomy Reported Medications Reported Meds & Active Scripts Active Proair Hfa 8.5 GM Inh (Albuterol Sulfate) 90 Mcg/Act Aer 2 Puff INH Q6H PRN 108 mcg/actuation Zithromax Z-Eleazar (Azithromycin) 250 Mg Dspk 250 Mg PO DIRECTED 500 MG (2 tabs) day 1, then 1 tab days 2-5. Reported Doxazosin (Doxazosin Mesylate) 2 Mg Tab 2 Mg PO DAILY Furosemide 40 Mg Tab 40 Mg PO DAILY Albuterol Neb (Albuterol Sulfate) 2.5 Mg/3 Ml Neb 2.5 Mg NEB Q4HR PRN Senna-Tabs (Sennosides) 8.6 Mg Tab 8.6 Mg PO DAILY PRN Ambien (Zolpidem Tartrate) 5 Mg Tab 5 Mg PO HS Trazodone (Trazodone HCl) 50 Mg Tab 50 Mg PO HS PRN Xanax (Alprazolam) 2 Mg Tab 2 Mg PO TID Metoprolol Tartrate 50 Mg Tab 40 Mg PO HS Allergies: Coded Allergies: penicillin G (Unverified Allergy, Intermediate, RASH, SWELLING, 12/27/17) acetaminophen (Unverified Allergy, Mild, ITCHING, 12/27/17) propoxyphene (Unverified Allergy, Mild, ITCHING, 12/27/17) Family History Mother and father both secondary to complications from alcoholism Social History Patient currently smokes one half pack per day, however historically has smoked 3 packs per day since he was a teenager. Reports rare alcohol use. Positive history of IV drug use. Physical Exam Vital Signs Vital Signs Date Time Temp Pulse Resp B/P (MAP) Pulse Ox O2 Delivery O2 Flow Rate FiO2 12/27/17 13:00 84 24 121/67 (85) 93 Room Air 12/27/17 12:00 82 22 107/58 (74) 95 Room Air 12/27/17 10:38 99 17 113/72 (86) 97 Room Air 12/27/17 10:07 98 Room Air 12/27/17 10:07 98 Room Air 12/27/17 10:00 98.6 102 20 127/80 (96) 99 Physical Exam GENERAL: This is a thin 37-year-old male who appears older than stated age. He is disoriented to year and month SKIN: No rashes, ecchymoses or lesions. Cool and dry. HEAD: Atraumatic. Normocephalic. No temporal or scalp tenderness. EYES: Pupils equal round and reactive. Extraocular motions intact. No scleral icterus. No injection or drainage. ENT: Nose without bleeding, purulent drainage or septal hematoma. Throat without erythema, tonsillar hypertrophy or exudate. Uvula midline. Airway patent. NECK: Trachea midline. No JVD or lymphadenopathy. Supple, nontender, no meningeal signs. CARDIOVASCULAR: Regular rate and rhythm without murmurs, gallops, or rubs. RESPIRATORY: Clear to auscultation. Breath sounds equal bilaterally. No wheezes , rales, or rhonchi. GASTROINTESTINAL: Abdomen soft, non-tender, nondistended. No hepato-splenomegaly , or palpable masses. No guarding. MUSCULOSKELETAL: +2 bilateral lower extremity edema which patient says is chronic. Patient with right upper extremity first digit amputation with local surrounding cyanotic appearance, with rest of hand appearing warm. No calf tenderness. Negative Homans sign bilaterally. NEUROLOGICAL: Awake and alert. Cranial nerves II through XII intact. Motor and sensory grossly within normal limits. Five out of 5 muscle strength in all muscle groups. Normal speech. Laboratory Laboratory Tests Test 12/27/17 10:30 12/27/17 11:00 12/27/17 14:25 White Blood Count 5.8 Red Blood Count 4.04 Hemoglobin 9.5 Hematocrit 30.6 Mean Corpuscular Volume 75.6 Mean Corpuscular Hemoglobin 23.5 Mean Corpuscular Hemoglobin Concent 31.1 Red Cell Distribution Width 18.9 Platelet Count 118 Mean Platelet Volume 9.4 Neutrophils (%) (Auto) 69.7 Lymphocytes (%) (Auto) 18.1 Monocytes (%) (Auto) 11.1 Eosinophils (%) (Auto) 0.6 Basophils (%) (Auto) 0.5 Neutrophils # (Auto) 4.1 Lymphocytes # (Auto) 1.1 Monocytes # (Auto) 0.6 Eosinophils # (Auto) 0.0 Basophils # (Auto) 0.0 CBC Comment DIFF FINAL Differential Comment Prothrombin Time 12.9 Prothromb Time International Ratio 1.3 Activated Partial Thromboplast Time 37.9 Blood Urea Nitrogen 8 Creatinine 0.77 Random Glucose 124 Total Protein 6.7 Albumin 2.7 Calcium Level 7.6 Phosphorus Level 2.6 Magnesium Level 1.9 Alkaline Phosphatase 196 Aspartate Amino Transf (AST/SGOT) 35 Alanine Aminotransferase (ALT/SGPT) 16 Total Bilirubin 1.3 Sodium Level 131 Potassium Level 3.4 Chloride Level 97 Carbon Dioxide Level 26.3 Anion Gap 8 Estimat Glomerular Filtration Rate 113 Lactic Acid Level 2.3 1.0 Total Creatine Kinase 93 Troponin I LESS THAN 0.02 Lipase 143 Urine Color YELLOW Urine Turbidity CLEAR Urine pH 6.0 Urine Specific [place] 1.013 Urine Protein TRACE Urine Glucose (UA) NEG Urine Ketones NEG Urine Occult Blood NEG Urine Nitrite NEG Urine Bilirubin NEG Urine Urobilinogen 4.0 Urine Leukocyte Esterase NEG Urine RBC 1 Urine WBC LESS THAN 1 Urine Mucus FEW Microscopic Urinalysis Comment CATH-CULT NOT IND Urine Opiates Screen NEG Urine Barbiturates Screen NEG Urine Amphetamines Screen NEG Urine Benzodiazepines Screen POS Urine Cocaine Screen NEG Urine Cannabinoids Screen NEG Date/Time Source Procedure Growth Status 12/27/17 10:30 Blood Peripheral Aerobic Blood Culture Pending Received 12/27/17 10:30 Blood Peripheral Anaerobic Blood Culture Pending Received Result Diagram: 12/27/17 1030 12/27/17 1030 Imaging Last Impressions Chest X-Ray 12/27/17 1005 Signed Impressions: CONCLUSION: Density right upper lobe. Recommend medical treatment and follow-up with serial x-rays to ensure complete resolution. Caprini VTE Risk Assessment Caprini VTE Risk Assessment: No/Low Risk (score <= 1) Caprini Risk Assessment Model Point Value = 1 Point Value = 2 Point Value = 3 Point Value = 5 Age 41-60 Minor surgery BMI > 25 kg/m2 Swollen legs Varicose veins or History of unexplained or recurrent spontaneous Oral contraceptives or hormone replacement Sepsis (< 1 month) Serious lung disease, including pneumonia (< 1 month) Abnormal pulmonary function Acute myocardial infarction Congestive heart failure (< 1 month) History of inflammatory bowel disease Medical patient at bed rest Age 61-74 Arthroscopic surgery Major open surgery (> 45 min) Laparoscopic surgery (> 45 min) Malignancy Confined to bed (> 72 hours) Immobilizing plaster cast Central venous access Age >= 75 History of VTE Family history of VTE Factor V Leiden Prothrombin [id number] Lupus anticoagulant Anticardiolipin antibodies Elevated serum homocysteine Heparin-induced thrombocytopenia Other congenital or acquired thrombophilia Stroke (< 1 month) Elective arthroplasty Hip, pelvis, or leg fracture Acute spinal cord injury (< 1 month) Prophylaxis Regimen Total Risk Factor Score Risk Level Prophylaxis Regimen 0-1 Low Early ambulation 2 Moderate Order ONE of the following: *Sequential Compression Device (SCD) *Heparin 5000 units SQ BID 3-4 Higher Order ONE of the following medications: *Heparin 5000 units SQ TID *Enoxaparin/Lovenox 40 mg SQ daily (WT < 150 kg, CrCl > 30 mL/min) *Enoxaparin/Lovenox 30 mg SQ daily (WT < 150 kg, CrCl > 10-29 mL/min) *Enoxaparin/Lovenox 30 mg SQ BID (WT < 150 kg, CrCl > 30 mL/min) AND/OR *Sequential Compression Device (SCD) 5 or more Highest Order ONE of the following medications: *Heparin 5000 units SQ TID (Preferred with Epidurals) *Enoxaparin/Lovenox 40 mg SQ daily (WT < 150 kg, CrCl > 30 mL/min) *Enoxaparin/Lovenox 30 mg SQ daily (WT < 150 kg, CrCl > 10-29 mL/min) *Enoxaparin/Lovenox 30 mg SQ BID (WT < 150 kg, CrCl > 30 mL/min) AND *Sequential Compression Device (SCD) Assessment and Plan Assessment and Plan //Suspected endocarditis. //Gram-positive bacteremia //History of IV drug use. //Suspected severe sepsis. Tachycardia, tachypnea, bacteremia, also with possible right upper lobe pneumonia on chest x-ray. Reported fevers at home. = Cultures from 12/25 with 3 out of 4 bottles positive for coag negative staph. Source unknown, however patient has history of endocarditis, also has right thumb with exposed bone. = Lactate 2.2 on admission, subsequently improved. = We will start Levaquin for pneumonia, vancomycin for positive bacteremia. = Consult infectious disease. Follow-up cultures. //Suspected endocarditis -With history of endocarditis in the past -4-4 blood cultures from 12/25+ for coag negative staph. = ESR pending. Start vancomycin. Consult infectious disease. Echocardiogram ordered. Evaluation of right hand ordered as well. //Suspected osteomyelitis of right first finger. -Exposed bone on exam. X-ray, hand surgery evaluation. Suspect this is source of infection. //Right upper lobe pneumonia. = With hemoptysis reported.. I did have a chance to see a picture the patient took. This is definitely some hemoptysis, however no large clots. = Check QuantiFERON. -Start Levaquin. Infectious disease consult pending. Consult pulmonology. //Chronic CHF, unknown systolic or diastolic. = Continue home medications. Echocardiogram pending. Monitoring of intake and output. //Bilirubin and alkaline phosphatase elevation. -Suspect bilirubin elevation is secondary to Gilbert syndrome, and that alkaline phosphatase is secondary to right upper extremity osteomyelitis of first finger. //Depression. No SI or HI. Continue home medications. //Tobaccoism. Cessation counseling provided. //DVT prophylaxis. SCDs. We will avoid anticoagulation secondary to hemoptysis. Discussed Condition With Patient, ED physician. Physician Certification 2 Midnight Certification Type: Admission for Inpatient Services Order for Inpatient Services The services are ordered in accordance with Medicare regulations or non- Medicare payer requirements, as applicable. In the case of services not specified as inpatient-only, they are appropriately provided as inpatient services in accordance with the 2-midnight benchmark. Estimated LOS (days): 2 days is the estimated time the patient will need to remain in the hospital, assuming treatment plan goals are met and no additional complications. Post-Hospital Plan: Not yet determined Cipriano Pulido MD December 27, 2017 15:41
[2017-12-27] MEDS ORDERED: PILL SPLITTER OTHER PRN (15:45)
--- NOTE | 2017-12-27 15:50 | RADRPT ---
EXAM DATE: 12/27/2017 3:46 PM EDT AGE/SEX: 37 years / Male INDICATIONS: Right hand, thumb, pain CLINICAL DATA: This is the patient's initial encounter. Patient reports that signs and symptoms have been present for 3 months and indicates a pain score of 8/10. MEDICAL/SURGICAL HISTORY: . Buerger's disease . Right thumb amputation COMPARISON: No prior [facility] exams available for comparison. FINDINGS: The thumb has been previously amputated at the first metacarpophalangeal joint. No acute bony abnorma lities identified. No fracture or dislocation. CONCLUSION: Previous amputation of the right thumb. No acute findings. Electronically signed by: Turner Angelo MD 12/27/2017 3:48 PM EDT
[2017-12-27] MEDS ORDERED: LEVOFLOXACIN 750 MG TAB PO ONE (16:00)
[2017-12-27 16:21] LABS: TOTAL BILIRUBIN ADULT 1.4 MG/DL (0.2-1.0)
[2017-12-27 16:23] LABS: DIRECT BILIRUBIN ADULT 0.6 MG/DL (0.0-0.2); INDIRECT BILIRUBIN 0.8 MG/DL (0.0-0.8)
--- NOTE | 2017-12-27 17:02 | PD.CONS ---
Consult Service Palliative Care Consult Requested By Dr. Pulido Primary Care Physician No Primary Care Physician Reason for Consultation a. To assist with evaluation and management of symptoms including: Cough, dyspnea, fever b. To assist medical decision maker(s) with: better understanding of current medical conditions; weighing benefits/burdens of medical treatment options; making medical treatment decisions. HPI History of Present Illness This is a 37-year-old male with a past history of IV drug abuse, endocarditis, presented to [facility] emergency department 12/27/2017 with a complaint of cough, yellowish sputum production with some blood, dyspnea, fevers up to 104, fatigue and lightheadedness without syncope. He had previously visited the ER on 12/25 and was provided with antibiotics, which he did not take. 3 out of 4 blood cultures performed on 12/25 returned positive for coag negative staph and patient was called to return to the hospital. Patient reported continual worsening of dyspnea and fatigue. 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 He was previously admitted to [facility] hospice 10/04/2015. In December 2015 patient called 911 to report seizures and was transported to [facility] for further evaluation. Once discharged he started to self medicate with pain and anxiety medication outside of the prescribed instructions, prompting a daily supply of medications to be delivered to the patient's home or local [facility] with pickup by family. He then transferred to [facility] hospice care 2015. He was subsequently discharged from [facility] hospice on 2015 and requested [facility] hospice services again, but was found not to be terminal at that time and referred for regular outpatient medical treatment. He again contacted [facility] to 09/23/17 stating that he had no plans of obtaining a heart transplant and would like comfort measures only. After review by the physicians it was determined that we would not be able to provide to help he needs and he was referred to for other hospice providers in our service area. He advises that he already has an appointment to go to [facility] 10/13/2017 for possible heart transplant. ED course * Laboratory: WBC 5.8, hemoglobin 9.5, hematocrit 30.6, platelets 118, sodium 131, potassium 3.4, BUN 8, creatinine 0.77, glucose 124, alkaline phosphatase 196, AST 35, ALT 16, troponin less than 0.02. Urine toxicology was positive only for benzodiazepines, which do appear on his home medication list. * Radiology: Chest x-ray showed density in the right upper lobe. Right hand x- ray shows previous amputation of the right thumb with no acute bony abnormalities identified. This is an ill appearing, thin, young male, sitting up in bed in no acute distress. He is mildly dyspneic at rest and states it worsens with activity, is constant and improved by Xanax.He describes his cough as intermittent, of moderate severity, productive of sputum, associated with pleuritic pain.Describes the fever as up to 104.0, associated with chills and diaphoresis , intermittent, lasting several hours, improved with tylenol. . Function/Cognitive Trajectory He states he has become more SOB and fatigued over the last 2 months and has been admitted to [facility] as well. He states that since his endocarditis is back, he knows his life expectancy is short and wants to be comfortable at home. . Review of Systems Constitutional: COMPLAINS OF: Fatigue, Fever, Weight loss, Generalized weakness , DENIES: Diaphoretic episodes, Weight gain, Chills, Dizziness, Change in appetite, Night Sweats, Pain, Sleep problems Endocrine: DENIES: Heat/cold intolerance, Polydipsia, Polyuria, Polyphagia Eyes: DENIES: Blurred vision, Diplopia, Eye inflammation, Eye pain, Vision loss , Photosensitivity, Double Vision, Blind spots Ears, nose, mouth, throat: DENIES: Tinnitus, Hearing loss, Vertigo, Nasal discharge, Oral lesions, Throat pain, Hoarseness, Ear Pain, Running Nose, Epistaxis, Sinus Pain, Toothache, Odynophagia Respiratory: COMPLAINS OF: Cough, Sputum production, Shortness of breath, DENIES: Apneas, Snoring, Wheezing, Hemoptysis Cardiovascular: COMPLAINS OF: Dyspnea on Exertion, DENIES: Chest pain, Palpitations, Syncope, PND, Lower Extremity Edema, Orthopnea, Claudication Gastrointestinal: DENIES: Abdominal pain, Black stools, Bloody stools, Constipation, Diarrhea, Nausea, Vomiting, Difficulty Swallowing, Anorexia, Dyspepsia or heartburn, Excessive gas, Bloating, Vomiting blood Genitourinary: DENIES: Sexual dysfunction, Urinary frequency, Urinary incontinence, Urgency, Hematuria, Dysuria, Nocturia, Penile Discharge, Testicular Pain, Testicular Swelling, Hesitancy, Dribbling, Decreased stream Musculoskeletal: DENIES: Joint pain, Muscle aches, Stiffness, Joint Swelling, Back pain, Neck pain, Decreased range of motion Integumentary: DENIES: Abnormal pigmentation, Nail changes, Pruritus, Rash, Nodules, Tumors, Excessive dryness, Non-healing sores Hematologic/Lymphatics: DENIES: Bruising, Lymphadenopathy, Prolonged bleed w/ proced, History of transfusions Immunologic/Allergic: DENIES: Eczema, Urticaria Neurologic: DENIES: Abnormal gait, Headache, Localized weakness, Paresthesias, Seizures, Speech Problems, Tremor, Poor Balance, Change in smell or taste Psychiatric: COMPLAINS OF: Anxiety, DENIES: Confusion, Mood changes, Depression , Hallucinations, Agitation, Suicidal Ideation, Homicidal Ideation, Delusions, Anhedonia Past Family Social History Coded Allergies: penicillin G (Unverified Allergy, Intermediate, RASH, SWELLING, 12/27/17) acetaminophen (Unverified Allergy, Mild, ITCHING, 12/27/17) propoxyphene (Unverified Allergy, Mild, ITCHING, 12/27/17) Past Medical History CHF COPD Endocarditis Depression Past Surgical History Hernia surgery Exploratory laparotomy Reported Medications Reported Meds & Active Scripts Active Proair Hfa 8.5 GM Inh (Albuterol Sulfate) 90 Mcg/Act Aer 2 Puff INH Q6H PRN 108 mcg/actuation Zithromax Z-Eleazar (Azithromycin) 250 Mg Dspk 250 Mg PO DIRECTED 500 MG (2 tabs) day 1, then 1 tab days 2-5. Reported Doxazosin (Doxazosin Mesylate) 2 Mg Tab 2 Mg PO DAILY Furosemide 40 Mg Tab 40 Mg PO DAILY Albuterol Neb (Albuterol Sulfate) 2.5 Mg/3 Ml Neb 2.5 Mg NEB Q4HR PRN Senna-Tabs (Sennosides) 8.6 Mg Tab 8.6 Mg PO DAILY PRN Ambien (Zolpidem Tartrate) 5 Mg Tab 5 Mg PO HS Trazodone (Trazodone HCl) 50 Mg Tab 50 Mg PO HS PRN Xanax (Alprazolam) 2 Mg Tab 2 Mg PO TID Metoprolol Tartrate 50 Mg Tab 40 Mg PO HS . Current Medications Medications (Trade) Dose Ordered Sig/Marlene Route Start Time Stop Time Status Last Admin Pharmacy Profile Note 0 ml @ 0 mls/hr UNSCH OTHER 12/27/17 13:30 (NS Flush) 2 ml UNSCH PRN IV FLUSH 12/27/17 13:30 (NS Flush) 2 ml BID IV FLUSH 12/27/17 21:00 (Compazine Supp) 25 mg Q12H PRN RECTAL 12/27/17 13:30 (Narcan Inj) 0.4 mg UNSCH PRN IV PUSH 12/27/17 13:30 (Milk Of Magnesia Liq) 30 ml Q12H PRN PO 12/27/17 13:30 (Senokot) 17.2 mg Q12H PRN PO 12/27/17 13:30 (Dulcolax Supp) 10 mg DAILY PRN RECTAL 12/27/17 13:30 (Lactulose Liq) 30 ml DAILY PRN PO 12/27/17 13:30 (Albuterol Neb) 2.5 mg Q4HR NEB PRN NEB 12/27/17 13:45 (Xanax) 2 mg TID PO 12/27/17 18:00 (Cardura) 2 mg DAILY PO 12/28/17 09:00 (Lasix) 40 mg DAILY PO 12/28/17 09:00 (Desyrel) 50 mg HS PRN PO 12/27/17 13:45 (Ambien) 5 mg HS PO 12/27/17 21:00 Vancomycin HCl 1250 mg/Sodium Chloride 262.5 ml @ 250 mls/hr Q12H IV 12/27/17 23:00 ([facility] Ordered Lab Info) SPECIFIC LAB TO BE DRAWN:VANCO CONSULT DATE... ONCE ONCE .XX 12/29/17 10:45 12/29/17 10:46 (Levaquin) 750 mg DAILY PO 12/28/17 09:00 (Lopressor) 12.5 mg Q12HR PO 12/27/17 21:00 (Pill Splitter) 1 ea UNSCH PRN OTHER 12/27/17 15:45 Family History Mother and father both secondary to complications from alcoholism Substance Use Tobacco: Historically has smoked 3 packs per day since he was a teenager, currently states he smokes a half a pack per day. Alcohol: Reports rare alcohol use. Prescription med abuse: Positive history of medication misuse while in [facility] hospice services. Illicits: History of IV drug abuse . Psychosocial History He was born in [place] and moved to [place] in the late . 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 He has 3 children 8, 10 and 15, who live in [place], but he has no contact with them. He has lived with his SO for 18 years. . Spiritual/Cultural Factors Identifies with the Hoahaoism hortensia. . Living Will: Never completed Health Care Surrogate: Copy in medical record Date completed: 12/27/17 . Health Care Surrogate(s): Coretta Lazaro, his SO is his HCS. . Documented care wishes: No living will completed. . Today's verbally stated goals: He states that he wishes to be comfortable and at home. He states that he is frightened of having any kind of heart surgery and if offered, he would refuse it. . Family/friends goals: No family at bedside. . Ethical and Legal Issues None noted. . Physical Exam Vital Signs Date Time Temp Pulse Resp B/P (MAP) Pulse Ox O2 Delivery O2 Flow Rate FiO2 12/27/17 16:09 12/27/17 15:00 88 22 98/57 (71) 95 Room Air 12/27/17 14:00 86 26 117/84 (95) 95 Room Air 12/27/17 13:00 84 24 121/67 (85) 93 Room Air 12/27/17 12:00 82 22 107/58 (74) 95 Room Air 12/27/17 10:38 99 17 113/72 (86) 97 Room Air 12/27/17 10:07 98 Room Air 12/27/17 10:07 98 Room Air 12/27/17 10:00 98.6 102 20 127/80 (96) 99 12/27/17 12/28/17 19:00 07:00 Intake Total 350 ml Output Total 800 ml Balance -450 ml Intake IV Total 350 ml Output Urine Total 800 ml # Voids 1 Exam CONSTITUTIONAL/GENERAL: This is a thin, ill appearing male, in no acute distress. TUBES/LINES/DRAINS: PIV SKIN: No jaundice, rashes, or lesions. Ecchymoses on upper extremities. No wounds seen anteriorly. Skin temperature appropriate. Not diaphoretic. HEAD: Atraumatic. Normocephalic. EYES: Pupils equal and round and reactive. Extraocular motions intact. No scleral icterus. No injection or drainage. Fundi not examined. ENT: Hearing grossly normal. Nose without bleeding or purulent drainage. Throat without visible erythema, exudates, masses, or lesions. NECK: Trachea midline. Supple, nontender. No palpable thyroid enlargement or nodularity. CARDIOVASCULAR: Regular rate and rhythm without murmurs, gallops, or rubs. No JVD. Peripheral pulses symmetric. RESPIRATORY/CHEST: Symmetric, unlabored respirations. Coarse breath sounds with expiratory wheezes. GASTROINTESTINAL: Abdomen soft, non-tender, nondistended. No hepato-splenomegaly , or palpable masses. No guarding. Bowel sounds present. GENITOURINARY: Without palpable bladder distension. MUSCULOSKELETAL: Extremities without clubbing, cyanosis, or edema. No joint tenderness or effusion noted. No calf tenderness. No mottling or clubbing. LYMPHATICS: No palpable cervical or supraclavicular adenopathy. NEUROLOGICAL: Awake and alert. Motor and sensory grossly within normal limits. Follows commands. Moves all extremities. PSYCHIATRIC: No obvious anxiety/depression. no apparent hallucinations or other psychotic thought process. . Diagnostic Tests Laboratory Laboratory Tests Test 12/27/17 10:30 12/27/17 11:00 12/27/17 14:25 White Blood Count 5.8 TH/MM3 (4.0-11.0) Red Blood Count 4.04 MIL/MM3 (4.50-5.90) Hemoglobin 9.5 GM/DL (13.0-17.0) Hematocrit 30.6 % (39.0-51.0) Mean Corpuscular Volume 75.6 FL (80.0-100.0) Mean Corpuscular Hemoglobin 23.5 PG (27.0-34.0) Mean Corpuscular Hemoglobin Concent 31.1 % (32.0-36.0) Red Cell Distribution Width 18.9 % (11.6-17.2) Platelet Count 118 TH/MM3 (150-450) Mean Platelet Volume 9.4 FL (7.0-11.0) Neutrophils (%) (Auto) 69.7 % (16.0-70.0) Lymphocytes (%) (Auto) 18.1 % (9.0-44.0) Monocytes (%) (Auto) 11.1 % (0.0-8.0) Eosinophils (%) (Auto) 0.6 % (0.0-4.0) Basophils (%) (Auto) 0.5 % (0.0-2.0) Neutrophils # (Auto) 4.1 TH/MM3 (1.8-7.7) Lymphocytes # (Auto) 1.1 TH/MM3 (1.0-4.8) Monocytes # (Auto) 0.6 TH/MM3 (0-0.9) Eosinophils # (Auto) 0.0 TH/MM3 (0-0.4) Basophils # (Auto) 0.0 TH/MM3 (0-0.2) CBC Comment DIFF FINAL Differential Comment Erythrocyte Sedimentation Rate 22 mm/hr (0-15) Prothrombin Time 12.9 SEC (9.8-11.6) Prothromb Time International Ratio 1.3 RATIO Activated Partial Thromboplast Time 37.9 SEC (24.3-30.1) Blood Urea Nitrogen 8 MG/DL (7-18) Creatinine 0.77 MG/DL (0.60-1.30) Random Glucose 124 MG/DL (74-106) Total Protein 6.7 GM/DL (6.4-8.2) Albumin 2.7 GM/DL (3.4-5.0) Calcium Level 7.6 MG/DL (8.5-10.1) Phosphorus Level 2.6 MG/DL (2.5-4.9) Magnesium Level 1.9 MG/DL (1.5-2.5) Alkaline Phosphatase 196 U/L (45-117) Aspartate Amino Transf (AST/SGOT) 35 U/L (15-37) Alanine Aminotransferase (ALT/SGPT) 16 U/L (12-78) Total Bilirubin 1.3 MG/DL (0.2-1.0) Sodium Level 131 MEQ/L (136-145) Potassium Level 3.4 MEQ/L (3.5-5.1) Chloride Level 97 MEQ/L (98-107) Carbon Dioxide Level 26.3 MEQ/L (21.0-32.0) Anion Gap 8 MEQ/L (5-15) Estimat Glomerular Filtration Rate 113 ML/MIN (>89) Lactic Acid Level 2.3 mmol/L (0.4-2.0) 1.0 mmol/L (0.4-2.0) Direct Bilirubin 0.6 MG/DL (0.0-0.2) Indirect Bilirubin 0.8 MG/DL (0.0-0.8) Total Creatine Kinase 93 U/L (39-308) Troponin I LESS THAN 0.02 NG/ML Lipase 143 U/L (73-393) Urine Color YELLOW (YELLW/STRAW) Urine Turbidity CLEAR (CLEAR) Urine pH 6.0 (5.0-8.5) Urine Specific Butner 1.013 (1.002-1.035) Urine Protein TRACE mg/dL (NEG-TRACE) Urine Glucose (UA) NEG mg/dL (NEG) Urine Ketones NEG mg/dL (NEG) Urine Occult Blood NEG (NEG) Urine Nitrite NEG (NEG) Urine Bilirubin NEG (NEG) Urine Urobilinogen 4.0 MG/DL (LESS THAN Urine Leukocyte Esterase NEG (NEG) Urine RBC 1 /hpf (0-3) Urine WBC LESS THAN 1 /hpf (0-5) Urine Mucus FEW /lpf (OCC) Microscopic Urinalysis Comment CATH-CULT NOT IND Urine Opiates Screen NEG (NEG) Urine Barbiturates Screen NEG (NEG) Urine Amphetamines Screen NEG (NEG) Urine Benzodiazepines Screen POS (NEG) Urine Cocaine Screen NEG (NEG) Urine Cannabinoids Screen NEG (NEG) Result Diagram: 12/27/17 1030 12/27/17 1030 Microbiology Microbiology Date/Time Source Procedure Growth Status 12/27/17 10:30 Blood Peripheral Aerobic Blood Culture Pending Received 12/27/17 10:30 Blood Peripheral Anaerobic Blood Culture Pending Received 12/27/17 10:25 Blood Peripheral Aerobic Blood Culture Pending Received 12/27/17 10:25 Blood Peripheral Anaerobic Blood Culture Pending Received Imaging Last Impressions Chest X-Ray 12/27/17 1005 Signed Impressions: CONCLUSION: Density right upper lobe. Recommend medical treatment and follow-up with serial x-rays to ensure complete resolution. Hand X-Ray 12/27/17 0000 Signed Impressions: CONCLUSION: Previous amputation of the right thumb. No acute findings. Patient/Family Conference Present at Family Conference: Spoke with patient at bedside and reviewed palliative care purpose and focus, the below listed items, advanced directives, past medical, social and psychosocial history. Patient voluntarily completed a HCS and provided a copy of his previously completed [place] DNR. Copies of both were placed on his chart. . Family Conference Location: Bedside Issues Discussed: * Palliative care role, purpose, approach * Additional medical, psychosocial, and spiritual history * Patients general health, functional status, and cognitive changes in the months leading up to the current hospitalization * Patient/family understanding of the current medical problems * Patient/family understanding of prognosis * Patients goals of care as best understood from advance directives and/or conversations and/or values * Current medical treatment options and benefits/burdens of those options * Likely scenarios comparing ongoing aggressive care with a transition to comfort measures only * Questions answered to the best of my ability * Palliative care contact information provided Assessment and Plan Disease Oriented Problem List: (1) Suspected endocarditis (2) Gram-positive bacteremia (3) History of intravenous drug use in remission (4) Sepsis (5) Chronic systolic CHF (congestive heart failure) Symptom Scale: (1) Dyspnea and respiratory abnormalities (2) Cough (3) Fever Pertinent Non-Medical Issues Psychosocial:He was born in [place] and moved to [place] in the late . 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 He has 3 children 8, 10 and 15, who live in [place], but he has no contact with them. He has lived with his SO for 18 years. Spiritual: Hoahaoism hortensia. Legal: DNR and HCS on chart. Ethical issues impacting care: None noted. . Important Contacts Family: Louis Christianson Significant other: Stephanie Lazaro . Prognosis His prognosis is poor. 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 Without surgery, this will likely be recurrent. He has been on hospice services with [facility] and [facility] several times and has either revoked or been disqualified several times. This will be discussed with the hospice team for their determination as to his acceptance. . Code Status: No Code Plan PLAN: Legal decision maker: Patient is currently capacitated to make his own decisions and has completed a HCS form naming his girlfriend, Coretta Lazaro, as his HCS in the case of his incapacitation. Goals: Comfort CODE STATUS: DNR SYMPTOMS: * Dyspnea:He is mildly dyspneic at rest and states it worsens with activity, is constant and improved by Xanax. He is receiving furosemide, xanax and albuterol for symptoms. At this time his symptoms are controlled at rest. No additional recommendations at this time. * Cough:He describes his cough as intermittent, of moderate severity, productive of sputum, associated with pleuritic pain. He is receiving antibiotics and nebulizers. No additional recommendations at this time. * Fever: Suspected recurrent endocarditis. Blood cultures pending, currently afebrile. Describes the fever as up to 104.0, associated with chills and diaphoresis, intermittent, lasting several hours, improved with tylenol. On antibiotics, no further recommendations at this time. SUMMARY This is a 37 y/o male with a history of IVDA, now with suspected, recurrent endocarditis. He has been enrolled in [facility] services several times since 2016 and has either revoked, or been discharged from both [facility] and [facility] hospice services. He had a history of medication misuse, overusing his pain and anxiety medications. He is now seeking hospice services again. He is currently saying that he does not want heart surgery or transplant, but given his history, his prior records will need to be reviewed by hospice to determine eligibility. Will follow through hospital course as cultures become available to monitor symptoms and assist with GOC. Palliative care will continue to follow the patient during hospital course as condition evolves, to assist patient/decision-maker with understanding of their medical conditions, weighing benefits/burdens of treatment options, for clarification of goals of treatment. Additionally will assist with any symptoms of palliative concern. . Thank you for the opportunity to participate in the care of Mr. Borjas. Attestation To help prompt me to consider important information that might be impacting today's encounter and assessment, information from prior notes written by myself or my colleagues may have been "brought forward" into today's note. My signature on this note, however, is an attestation that I personally performed the exam, history, and/or decision-making noted today, and, unless otherwise indicated, the interactions with patient, family, and staff as well as the review of records all occurred today. I also attest that the listed assessment and stated plan reflect my best clinical judgment today based on the combination of historical information, prior notes, and today's exam/ interactions. When time spent is documented, it refers only to time spent today by the signer, or if indicated, combined time spent today by collaborating physician/nurse practitioner. . Donna Boswell December 27, 2017 5:02 pm
[2017-12-27] MEDS: ALPRAZolam 1 MG TAB PO SCH (17:07)
[2017-12-27] MEDS ORDERED: ZOLPIDEM TARTRATE 5 MG TAB PO SCH (21:00)
[2017-12-27] MEDS: SODIUM CHLORIDE 0.9% FLUSH 10 ML FLUSH IV FLUSH SCH (21:00)
[2017-12-27] MEDS: METOPROLOL TARTRATE 25 MG TAB PO SCH (21:00)
--- NOTE | 2017-12-27 22:08 | MB ---
cc: Blue Bella MD DATE: 12/27/2017 REQUESTING PHYSICIAN: Dr. Pulido. REASON FOR CONSULTATION: Evaluation for hemoptysis and lung infiltrate. HISTORY OF PRESENT ILLNESS: Mr. Borjas is a 37-year-old white male with history of IV drug abuse. As per patient, his last use was in 2013. He has a history of endocarditis in 2013. At that time, he was being considered for surgery, but it was not done because of his active IV drug use. He also has a history of severe congestive heart failure. He was in the hospice and he was disenrolled in 10/2017 from the hospice. He came to the hospital with fever, chills, cough, with small amount of blood-tinged sputum production, had chest pain, low back pain, which is chronic. He was seen in the emergency room. His 3/4 blood cultures were positive Gram-negative bacteria and he was recalled in. He complains of aches and pains all over and he states that he is DNR and would not want to have any invasive procedure to be done and he would consider palliative care. LABORATORY DATA: His workup shows a WBC count down of 5.8, hemoglobin 9.5, hematocrit 30.6, MCV 75, platelet count 118. Sodium 130, potassium 3.4, chloride 97, CO2 of 26, BUN 8, creatinine 0.77. INR is 1.3. IMAGING: His chest x-ray shows a right upper lobe infiltrate. 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 MEDICATIONS: He is currently taking doxazosin 2 mg a day, Lasix 40 mg a day, Levaquin 750 mg a day, vancomycin IV, Ambien 5 mg at nighttime, metoprolol 12.5 mg q. 12 hours, Xanax 2 mg 3 times a day, albuterol nebulizer treatment, trazodone 50 mg at nighttime. ALLERGIES: LISTED ACETAMINOPHEN, PENICILLIN AND PROPOXYPHENE. SOCIAL HISTORY: He has a history of smoking about 10 cigarettes a day. He used to use drugs before. No alcohol use. 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 He is disabled. FAMILY HISTORY: He is . He has 3 children who are being raised by their grandmother. REVIEW OF SYSTEMS: He has lost weight, feels weak and depressed. No seizure, stroke or epilepsy. PHYSICAL EXAMINATION: GENERAL: Thin built male, weak, not in any acute distress. VITAL SIGNS: Blood pressure 98/57, heart rate 88, respiration 18, temperature 98.8. HEENT: Pupils are equal and reactive to light. Oral mucosa and nasal mucosa normal. NECK: Supple. JVP not raised. CHEST: He has rales in the right chest. CARDIOVASCULAR: S1, S2 normal. ABDOMEN: Benign. EXTREMITIES: No edema. IMPRESSION: 1. Bacteremia. 2. Possible endocarditis. 3. History of endocarditis in the past. 4. Mild hemoptysis. 5. History of intravenous drug use. PLAN: We will continue present antibiotics. Check his cultures. The patient does not want any invasive procedures and wants palliative care. We will consult palliative care and monitor his hemoptysis. If hemoptysis gets worse, we will consider bronchoscopy. ID is consulted. Further treatment pending the course in the hospital. Thank you, Dr. Pulido, for this consult. MD MERA Richards/DESIREE/thony , 05:17 PM , 06:54 PM TAMIKA
[2017-12-28] MEDS: VANCOMYCIN INJ 1,250 MG in SODIUM CHLOR 0.9% 250 ML INJ 250 ML IV SCH ×2 (00:45→11:00)
[2017-12-28 04:00] VITALS: BP 100/60; PULSE 93; RESP 20; TEMP 98.2; O2SAT 94
[2017-12-28 06:47] LABS: AUTOMATED NEUTROPHIL # 2.6 TH/MM3 (1.8-7.7); BASOPHIL % 0.5 % (0.0-2.0); EOSINOPHIL % 1.2 % (0.0-4.0); HEMATOCRIT 27.6 % (39.0-51.0); HEMOGLOBIN 8.7 GM/DL (13.0-17.0); LYMPH % 20.5 % (9.0-44.0); LYMPHOCYTE # 0.8 TH/MM3 (1.0-4.8); MEAN CELL VOLUME 75.6 FL (80.0-100.0); MEAN CORPUSCULAR HEMOGLOBIN 23.9 PG (27.0-34.0); MEAN CORPUSCULAR HGB CONC 31.6 % (32.0-36.0); MEAN PLATELET VOLUME 9.6 FL (7.0-11.0); MONO % 11.2 % (0.0-8.0); MONOCYTE # 0.4 TH/MM3 (0-0.9); NEUT % 66.6 % (16.0-70.0); PLATELET COUNT 110 TH/MM3 (150-450); RED BLOOD COUNT 3.65 MIL/MM3 (4.50-5.90); RED CELL DISTRIBUTION WIDTH 18.3 % (11.6-17.2); WHITE BLOOD COUNT 3.9 TH/MM3 (4.0-11.0)
[2017-12-28 07:07] LABS: ALBUMIN 2.2 GM/DL (3.4-5.0); ALT (GPT) 13 U/L (12-78); AST (GOT) 23 U/L (15-37); BLOOD UREA NITROGEN 9 MG/DL (7-18); CALCIUM 7.5 MG/DL (8.5-10.1); CHLORIDE 100 MEQ/L (98-107); CREATININE 0.67 MG/DL (0.60-1.30); GLOMERULAR FILTRATION RATE 133 ML/MIN (>89); GLUCOSE,RANDOM 83 MG/DL (74-106); SODIUM (NA) 135 MEQ/L (136-145)
[2017-12-28 07:09] LABS: ALKALINE PHOSPHATASE 182 U/L (45-117)
[2017-12-28 08:00] VITALS: BP 101/74; PULSE 89; PULSE 90; RESP 16; TEMP 98; O2SAT 95
[2017-12-28] MEDS: SODIUM CHLORIDE 0.9% FLUSH 10 ML FLUSH IV FLUSH SCH (08:24)
[2017-12-28] MEDS: ALPRAZolam 1 MG TAB PO SCH ×2 (08:24→13:09)
[2017-12-28] MEDS: METOPROLOL TARTRATE 25 MG TAB PO SCH (08:24)
[2017-12-28] MEDS ORDERED: FUROSEMIDE 40 MG TAB PO SCH (09:00)
[2017-12-28] MEDS ORDERED: LEVOFLOXACIN 750 MG TAB PO SCH (09:00)
[2017-12-28] MEDS ORDERED: DOXAZOSIN MESYLATE 2 MG TAB PO SCH (09:00)
--- NOTE | 2017-12-28 10:07 | PD.ID.CON ---
History of Present Illness Service Infectious disease Consult Requested By Hospitalist service Primary Care Physician No Primary Care Physician Diagnoses: History of Present Illness Patient seen and examined on behalf of Dr. 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 He was seen in the ED 12/25 and treated for bronchitis with Azithromycin. Patient was called back to the ED when 3 blood cx were positive for coagulase negative staph. In the ED on 12/27, patients evaluation was concerning for severe sepsis with elevated lactic acid of 2.3, tachycardia, tachypnea, bacteremia and possible right upper lobe pneumonia. Patient was also found to have exposed bone on the right thumb and hand surgery has been consulted. Patient was started on IV Vancomycin. Palliative care has been consulted. Infectious disease consultation has been requested for evaluation and management of suspected endocarditis. He is currently afebrile. White count is 3.9. Repeat lactic acid 1.0. CXR shows density in the right upper lobe. Imaging of the right thumb shows previous amputation but no acute finding.Patient seen and states he is refusing IV antibiotic management. He tells me he wants to go home with Hospice to live out whatever days he has remaining. He also tells me he has been confused for the past several weeks and doing things like putting dishes in the dirty clothes hamper so there is a question if patient lacks capacity. (Melissa Johnson) Review of Systems Except as stated in HPI: all other systems reviewed are Neg (Melissa Johnson) Past Family Social History Allergies: Coded Allergies: penicillin G (Unverified Allergy, Intermediate, RASH, SWELLING, 12/27/17) acetaminophen (Unverified Allergy, Mild, ITCHING, 12/27/17) propoxyphene (Unverified Allergy, Mild, ITCHING, 12/27/17) Past Medical History CHF COPD Endocarditis 2013 Depression Hx of IVDU Past Surgical History Right thumb partial amputation Hernia surgery Exploratory laparotomy Reported Medications IV Vancomycin PO Levaquin Current Medications Medications (Trade) Dose Ordered Sig/Marlene Route Start Time Stop Time Status Last Admin Pharmacy Profile Note 0 ml @ 0 mls/hr UNSCH OTHER 12/27/17 13:30 (NS Flush) 2 ml UNSCH PRN IV FLUSH 12/27/17 13:30 (NS Flush) 2 ml BID IV FLUSH 12/27/17 21:00 12/28/17 08:24 (Compazine Supp) 25 mg Q12H PRN RECTAL 12/27/17 13:30 (Narcan Inj) 0.4 mg UNSCH PRN IV PUSH 12/27/17 13:30 (Milk Of Magnesia Liq) 30 ml Q12H PRN PO 12/27/17 13:30 (Senokot) 17.2 mg Q12H PRN PO 12/27/17 13:30 (Dulcolax Supp) 10 mg DAILY PRN RECTAL 12/27/17 13:30 (Lactulose Liq) 30 ml DAILY PRN PO 12/27/17 13:30 (Albuterol Neb) 2.5 mg Q4HR NEB PRN NEB 12/27/17 13:45 (Xanax) 2 mg TID PO 12/27/17 18:00 12/28/17 08:24 (Cardura) 2 mg DAILY PO 12/28/17 09:00 (Lasix) 40 mg DAILY PO 12/28/17 09:00 12/28/17 08:24 (Desyrel) 50 mg HS PRN PO 12/27/17 13:45 (Ambien) 5 mg HS PO 12/27/17 21:00 12/27/17 21:00 Vancomycin HCl 1250 mg/Sodium Chloride 262.5 ml @ 250 mls/hr Q12H IV 12/27/17 23:00 12/28/17 00:45 ([facility] Ordered Lab Info) SPECIFIC LAB TO BE DRAWN:VANCO CONSULT DATE... ONCE ONCE .XX 12/29/17 10:45 12/29/17 10:46 (Levaquin) 750 mg DAILY PO 12/28/17 09:00 12/28/17 08:23 (Lopressor) 12.5 mg Q12HR PO 12/27/17 21:00 (Pill Splitter) 1 ea UNSCH PRN OTHER 12/27/17 15:45 Active Ordered Medications Current Medications Medications (Trade) Dose Ordered Sig/Marlene Route Start Time Stop Time Status Last Admin Pharmacy Profile Note 0 ml @ 0 mls/hr UNSCH OTHER 12/27/17 13:30 (NS Flush) 2 ml UNSCH PRN IV FLUSH 12/27/17 13:30 (NS Flush) 2 ml BID IV FLUSH 12/27/17 21:00 12/28/17 08:24 (Compazine Supp) 25 mg Q12H PRN RECTAL 12/27/17 13:30 (Narcan Inj) 0.4 mg UNSCH PRN IV PUSH 12/27/17 13:30 (Milk Of Magnesia Liq) 30 ml Q12H PRN PO 12/27/17 13:30 (Senokot) 17.2 mg Q12H PRN PO 12/27/17 13:30 (Dulcolax Supp) 10 mg DAILY PRN RECTAL 12/27/17 13:30 (Lactulose Liq) 30 ml DAILY PRN PO 12/27/17 13:30 (Albuterol Neb) 2.5 mg Q4HR NEB PRN NEB 12/27/17 13:45 (Xanax) 2 mg TID PO 12/27/17 18:00 12/28/17 08:24 (Cardura) 2 mg DAILY PO 12/28/17 09:00 (Lasix) 40 mg DAILY PO 12/28/17 09:00 12/28/17 08:24 (Desyrel) 50 mg HS PRN PO 12/27/17 13:45 (Ambien) 5 mg HS PO 12/27/17 21:00 12/27/17 21:00 Vancomycin HCl 1250 mg/Sodium Chloride 262.5 ml @ 250 mls/hr Q12H IV 12/27/17 23:00 12/28/17 00:45 ([facility] Ordered Lab Info) SPECIFIC LAB TO BE DRAWN:VANCO CONSULT DATE... ONCE ONCE .XX 12/29/17 10:45 12/29/17 10:46 (Levaquin) 750 mg DAILY PO 12/28/17 09:00 12/28/17 08:23 (Lopressor) 12.5 mg Q12HR PO 12/27/17 21:00 (Pill Splitter) 1 ea UNSCH PRN OTHER 12/27/17 15:45 Family History Mother and father both secondary to complications from alcoholism Social History + tobacco use 1/2 ppd. Rare EtOH use. Hx of IVDU but states he has not used since 2013. (Melissa Johnson) Physical Exam Vital Signs Vital Signs Date Time Temp Pulse Resp B/P (MAP) Pulse Ox O2 Delivery O2 Flow Rate FiO2 12/28/17 04:00 98.2 93 20 100/60 (73) 94 12/27/17 20:00 98.8 94 20 128/64 (85) 92 12/27/17 16:10 97.8 86 20 103/71 (82) 96 12/27/17 16:09 12/27/17 15:00 88 22 98/57 (71) 95 Room Air 12/27/17 14:00 86 26 117/84 (95) 95 Room Air 12/27/17 13:00 84 24 121/67 (85) 93 Room Air 12/27/17 12:00 82 22 107/58 (74) 95 Room Air 12/27/17 10:38 99 17 113/72 (86) 97 Room Air 12/27/17 10:07 98 Room Air 12/27/17 10:07 98 Room Air 12/27/17 10:00 98.6 102 20 127/80 (96) 99 Physical Exam GENERAL: This is a thin somewhat ill appearing male patient, in no apparent distress. Awake and alert. SKIN: No rashes, ecchymoses or lesions. Cool and dry. HEAD: Atraumatic. Normocephalic. No temporal or scalp tenderness. EYES: Pupils equal round and reactive. Extraocular motions intact. No scleral icterus. No injection or drainage. ENT: Nose without bleeding or purulent drainage. Throat without erythema, tonsillar hypertrophy or exudate. Uvula midline. Airway patent. NECK: Trachea midline. No JVD or lymphadenopathy. Supple, nontender, no meningeal signs. CARDIOVASCULAR: Regular rate and rhythm without murmurs, gallops, or rubs. RESPIRATORY: Nonlabored. Coarse BS. Breath sounds equal bilaterally. No wheezes, rales, or rhonchi. GASTROINTESTINAL: Abdomen soft, non-tender, nondistended. No hepato-splenomegaly , or palpable masses. No guarding. +ventral hernia MUSCULOSKELETAL: Extremities without clubbing or cyanosis. +1+ pitting edema BLE with venous stasis changes. No joint tenderness, effusion, or edema noted. No calf tenderness. NEUROLOGICAL: Awake and alert. Cranial nerves II through XII grossly intact. Motor and sensory grossly within normal limits. Normal speech. PSYCHIATRIC: Calm and cooperative with exam PIV with no e/o infection Laboratory Laboratory Tests Test 12/27/17 10:30 12/27/17 11:00 12/27/17 14:25 12/27/17 19:25 White Blood Count 5.8 Red Blood Count 4.04 Hemoglobin 9.5 Hematocrit 30.6 Mean Corpuscular Volume 75.6 Mean Corpuscular Hemoglobin 23.5 Mean Corpuscular Hemoglobin Concent 31.1 Red Cell Distribution Width 18.9 Platelet Count 118 Mean Platelet Volume 9.4 Neutrophils (%) (Auto) 69.7 Lymphocytes (%) (Auto) 18.1 Monocytes (%) (Auto) 11.1 Eosinophils (%) (Auto) 0.6 Basophils (%) (Auto) 0.5 Neutrophils # (Auto) 4.1 Lymphocytes # (Auto) 1.1 Monocytes # (Auto) 0.6 Eosinophils # (Auto) 0.0 Basophils # (Auto) 0.0 CBC Comment DIFF FINAL Differential Comment Erythrocyte Sedimentation Rate 22 Prothrombin Time 12.9 Prothromb Time International Ratio 1.3 Activated Partial Thromboplast Time 37.9 Blood Urea Nitrogen 8 Creatinine 0.77 Random Glucose 124 Total Protein 6.7 Albumin 2.7 Calcium Level 7.6 Phosphorus Level 2.6 Magnesium Level 1.9 Alkaline Phosphatase 196 Aspartate Amino Transf (AST/SGOT) 35 Alanine Aminotransferase (ALT/SGPT) 16 Total Bilirubin 1.3 Sodium Level 131 Potassium Level 3.4 Chloride Level 97 Carbon Dioxide Level 26.3 Anion Gap 8 Estimat Glomerular Filtration Rate 113 Lactic Acid Level 2.3 1.0 Direct Bilirubin 0.6 Indirect Bilirubin 0.8 Total Creatine Kinase 93 Troponin I LESS THAN 0.02 Lipase 143 Urine Color YELLOW Urine Turbidity CLEAR Urine pH 6.0 Urine Specific Parrott 1.013 Urine Protein TRACE Urine Glucose (UA) NEG Urine Ketones NEG Urine Occult Blood NEG Urine Nitrite NEG Urine Bilirubin NEG Urine Urobilinogen 4.0 Urine Leukocyte Esterase NEG Urine RBC 1 Urine WBC LESS THAN 1 Urine Mucus FEW Microscopic Urinalysis Comment CATH-CULT NOT IND Urine Opiates Screen NEG Urine Barbiturates Screen NEG Urine Amphetamines Screen NEG Urine Benzodiazepines Screen POS Urine Cocaine Screen NEG Urine Cannabinoids Screen NEG Test 12/28/17 05:40 White Blood Count 3.9 Red Blood Count 3.65 Hemoglobin 8.7 Hematocrit 27.6 Mean Corpuscular Volume 75.6 Mean Corpuscular Hemoglobin 23.9 Mean Corpuscular Hemoglobin Concent 31.6 Red Cell Distribution Width 18.3 Platelet Count 110 Mean Platelet Volume 9.6 Neutrophils (%) (Auto) 66.6 Lymphocytes (%) (Auto) 20.5 Monocytes (%) (Auto) 11.2 Eosinophils (%) (Auto) 1.2 Basophils (%) (Auto) 0.5 Neutrophils # (Auto) 2.6 Lymphocytes # (Auto) 0.8 Monocytes # (Auto) 0.4 Eosinophils # (Auto) 0.0 Basophils # (Auto) 0.0 CBC Comment DIFF FINAL Differential Comment Blood Urea Nitrogen 9 Creatinine 0.67 Random Glucose 83 Total Protein 6.0 Albumin 2.2 Calcium Level 7.5 Alkaline Phosphatase 182 Aspartate Amino Transf (AST/SGOT) 23 Alanine Aminotransferase (ALT/SGPT) 13 Total Bilirubin 1.0 Sodium Level 135 Potassium Level 3.8 Chloride Level 100 Carbon Dioxide Level 26.0 Anion Gap 9 Estimat Glomerular Filtration Rate 133 Date/Time Source Procedure Growth Status 12/27/17 10:30 Blood Peripheral Aerobic Blood Culture Pending Received 12/27/17 10:30 Blood Peripheral Anaerobic Blood Culture Pending Received (Melissa Johnson) Result Diagram: 12/28/17 0540 12/28/17 0540 Imaging Last Impressions Chest X-Ray 12/27/17 1005 Signed Impressions: CONCLUSION: Density right upper lobe. Recommend medical treatment and follow-up with serial x-rays to ensure complete resolution. Hand X-Ray 12/27/17 0000 Signed Impressions: CONCLUSION: Previous amputation of the right thumb. No acute findings. 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 I reviewed and agree with the findings presented. I attest that I had a [id number] encounter with the patient on the same day, and personally performed and documented my assessment and findings in the medical record. Patient reports IVDA related endocarditis on 2 occasions in the past at [facility]. Patient reports being on hospice services. Patient reports no ongoing IVDA was called into ED when his blood cultures were positive. Repeat blood cultures negative s/b Pulm for hemoptysis refused workup. s/b hand surgery refused extensive surgeries. On exam Poorly nourished chronically ill appearing male. Decreased AE in bases. Edema bilateral LE. Abd distended but non tender. Patient is AAOx3 and appears competent enough to make decisions. Understands that untreated infection can be fatal/ Recs On vanco IV and levaquin. Patient wishes no further workup and refusing IV antibiotics. Wishes to go home with hospice. Will sign off please call back if any change in clinical condition or questions or if patient changes his mind. (Olya Newton MD) Melissa Johnson December 28, 2017 10:07 Olya Newton MD December 28, 2017 14:31
--- NOTE | 2017-12-28 11:59 | HHI.PR ---
Subjective Remarks Patient reports continued hemoptysis. Denies any chest pain or shortness of breath. He reports continued right thumb pain, requesting narcotics. Objective Vital Signs Date Time Temp Pulse Resp B/P (MAP) Pulse Ox O2 Delivery O2 Flow Rate FiO2 12/28/17 08:00 90 12/28/17 08:00 98.0 89 16 101/74 (83) 95 12/28/17 04:00 98.2 93 20 100/60 (73) 94 12/27/17 20:00 98.8 94 20 128/64 (85) 92 12/27/17 16:10 97.8 86 20 103/71 (82) 96 12/27/17 16:09 12/27/17 15:00 88 22 98/57 (71) 95 Room Air 12/27/17 14:00 86 26 117/84 (95) 95 Room Air 12/27/17 13:00 84 24 121/67 (85) 93 Room Air 12/27/17 12:00 82 22 107/58 (74) 95 Room Air I/O 12/27/17 12/27/17 12/27/17 12/28/17 12/28/17 12/28/17 07:00 15:00 23:00 07:00 15:00 23:00 Intake Total 350 ml 960 ml Output Total 800 ml 1200 ml Balance 350 ml -800 ml -240 ml Intake Oral 960 ml IV Total 350 ml Output Urine Total 800 ml 1200 ml # Voids 1 Result Diagram: 12/28/17 0540 12/28/17 0540 Objective Remarks GENERAL: Patient lying in bed. Appears comfortable. Alert and oriented 3 today. SKIN: Warm and dry. HEAD: Normocephalic. EYES: No scleral icterus. No injection or drainage. NECK: Supple, trachea midline. No JVD. CARDIOVASCULAR: Regular rate and rhythm without murmurs, gallops, or rubs. RESPIRATORY: Breath sounds equal bilaterally. No accessory muscle use. GASTROINTESTINAL: Abdomen soft, non-tender, nondistended. MUSCULOSKELETAL: No cyanosis. +1 edema bilateral lower extremities, better than yesterday. Right thumb amputation with visible bone, no surrounding erythema. BACK: Nontender without obvious deformity. No CVA tenderness. A/P Assessment and Plan //Suspected endocarditis. //Gram-positive bacteremia //History of IV drug use. //Suspected severe sepsis. Tachycardia, tachypnea, bacteremia, also with possible right upper lobe pneumonia on chest x-ray. Reported fevers at home. = Cultures from 12/25 with 3 out of 4 bottles positive for coag negative staph. Source unknown, however patient has history of endocarditis, also has right thumb with exposed bone. = Lactate 2.2 on admission, subsequently improved. = We will start Levaquin for pneumonia, vancomycin for positive bacteremia. = Consult infectious disease. Follow-up cultures. = Cultures negative so far. White blood cell count 3.9 today. Appreciate ID assistance. Continue antibiotics as per ID. Palliative care following. Appreciate assistance. //Suspected endocarditis -With history of endocarditis in the past -4-4 blood cultures from 12/25+ for coag negative staph. = ESR pending. Start vancomycin. Consult infectious disease. Echocardiogram ordered. Evaluation of right hand ordered as well. = ESR 22. Infectious disease following. Continue antibiotics as per ID. Echo cardiogram pending. //Suspected osteomyelitis of right first finger. -Exposed bone on exam. X-ray, hand surgery evaluation. Suspect this is source of infection. = Appreciate hand surgery assistance. //Right upper lobe pneumonia. = With hemoptysis reported.. I did have a chance to see a picture the patient took. This is definitely some hemoptysis, however no large clots. = Check QuantiFERON. -Start Levaquin. Infectious disease consult pending. Consult pulmonology. = Continue Levaquin. QuantiFERON gold pending. Appreciate pulmonology assistance. //Chronic CHF, unknown systolic or diastolic. = Continue home medications. Echocardiogram pending. Monitoring of intake and output. //Bilirubin and alkaline phosphatase elevation. -Suspect bilirubin elevation is secondary to Gilbert syndrome, and that alkaline phosphatase is secondary to right upper extremity osteomyelitis of first finger. = Labs improved somewhat today. No sign of liver pathology on exam. //Depression. No SI or HI. Continue home medications. //Tobaccoism. Cessation counseling provided. //DVT prophylaxis. SCDs. We will avoid anticoagulation secondary to hemoptysis. Discharge Planning Palliative care following Continues on antibiotics as per infectious disease. Cipriano Pulido MD December 28, 2017 11:59
[2017-12-28 12:00] VITALS: BP 99/72; PULSE 88; PULSE 92; RESP 16; TEMP 98.8; O2SAT 95
[2017-12-28] MEDS ORDERED: NALOXONE HCL 0.4 MG/ML AMP IV PUSH PRN (12:00)
--- NOTE | 2017-12-28 14:15 | MB ---
cc: Royal Decker MD DATE: 12/28/2017 HISTORY OF PRESENT ILLNESS: The patient is a 37-year-old male with history of IV drug use and recurrent and chronic endocarditis. He has a history of congestive heart failure. He has a several day productive cough with some blood and was admitted to the hospital. He was initially seen in the ER on 12/25/2017 and sent home on antibiotics, which he did not take. He did have positive blood cultures and was recalled to the hospital. Per the reports, the patient continues with worsening of the shortness of breath and fatigue. The patient had a right thumb amputation in [place] and has secondary complications from Buerger's disease. He does have exposed bone and that is why I am consulted. PAST MEDICAL HISTORY: Congestive heart failure, endocarditis, COPD, depression. PAST SURGICAL HISTORY: Hernia surgery, exploratory laparotomy. MEDICATIONS AT HOME: ProAir, zithromax, Z-DARBY, doxazosin, Furosemide, albuterol inhaler, Senna tabs, Ambien, Trazodone, Xanax and metoprolol. ALLERGIES: PENICILLIN G, ACETAMINOPHEN AND PROPOXYPHENE. MEDICATIONS IN THE HOSPITAL: Include Levaquin and vancomycin as well. The patient has been seen by hospice care as well as infectious disease. FAMILY HISTORY: Noncontributory. SOCIAL HISTORY: The patient has a history of IV drug use, as well as cigarette smoking. DIAGNOSTIC STUDIES: Laboratory studies are reviewed. The patient is anemic. White blood cell count 3.9 thousand; hemoglobin 8.7 g/dL; platelet count of 110,000. BUN and creatinine 9 and 0.67. X-rays of the hand were performed and reviewed. These reveal first transmetacarpal amputation. The bone does appear to be slightly eroded distally, and there is questionable soft tissue coverage. Chest x-ray reveals some infiltrates and density in the right upper lobe. REVIEW OF SYSTEMS: The patient is not complaining of any headaches or blurry or double vision. Not complaining of any chest pain or palpitations. Not complaining of any coughing, wheezing or shortness of breath. He is not complaining of any nausea, vomiting or abdominal pain. He is not complaining of any burning, frequency or urgency with urination. He is not complaining of any spine or back pain. He is not complaining of any anxiety, depression, or suicidal ideations. He is not complaining of any night sweats, fevers or chills. PHYSICAL EXAMINATION: VITAL SIGNS: Temperature 98.0, heart rate 92, blood pressure 101/74, pulse oximetry 95% on room air. MUSCULOSKELETAL: Examination of the right upper extremity reveals full active range of motion. Obvious absence of the thumb distal to the MP joint. There is an open wound. There is bone exposed that is palpable. There is no erythema, induration or drainage or any suggestion of an active infection anywhere. The other fingers all move normally and do not have any wounds. He does have an IV in his right arm, but there is no evidence of any lymphangitic streaking or axillary or epitrochlear adenopathy. IMPRESSION: Right hand exposed bone with osteomyelitis. PLAN: I have recommended an MRI of his hand to see how far proximally the inflammation in the bone extends. I would recommend debridement of the bone back to where the skin can be covered over it but I do not know where the extent of that would be and I discussed this with the patient. He is interested in doing as little about this as impossible because he does not want any operations. I told him I understand and I think we can keep this to a minimum. I would also like to try to get the IV out of the arm with the open wound and I will put in recommendations for this as well. MD JESSICA Dias/SAMANTHA , 01:39 PM , 02:14 PM
[2017-12-28] MEDS ORDERED: OXYC-392 PO (14:45)
[2017-12-28] MEDS ORDERED: AMBI5TAB PO (14:45)
[2017-12-28] MEDS ORDERED: XANA2TAB2 PO (14:45)
--- NOTE | 2017-12-28 14:59 | HHI.HCPN ---
Reason for visit a. To assist with evaluation and management of symptoms including: Pain, dyspnea, fever b. To assist medical decision maker(s) with: better understanding of current medical conditions; weighing benefits/burdens of medical treatment options; making medical treatment decisions. Subjective/Interval History Patient seen for follow-up of management of pain, dyspnea and fever. 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 There is exposed bone with evidence of osteomyelitis. He describes the pain as aching, throbbing of constant duration , moderate intensity exacerbated by movement and relieved with narcotics. His dyspnea is improving. At this evaluation he is sitting up in bed, consistently conversant without evidence of tachypnea or dyspnea. Respirations are even and unlabored, with symmetric lung expansion. He has been afebrile since admission and is now refusing IV antibiotics. He states he does not wish to undergo another 6 week antibiotic course in the hospital and after discussion with his , they both agree that he he would prefer to spend his remaining days at home and would benefit from hospice support. He has been enrolled in [facility], [facility] hospice and [facility] and has been discharged from all 3 in the past 2 years. No records are available from [facility] or [facility], however records from [facility] indicate a previous history of medication noncompliance, taking more than prescribed. After discussion with Dr. Soni and extensive review of the chart, it was determined that as he was stable now and refusing antibiotics with a normal white blood cell count, normal lactate, no fever and a goal of comfort management, he could be discharged home from a palliative care standpoint and contact [facility] if symptoms recurred. Contact information for [facility] was provided to the patient and this was discussed with Dr. Pulido, the attending, who agreed that the patient could be discharged since he was refusing treatment and follow-up with hospice if symptoms recurred. He agreed to provide him a short amount of Xanax and pain medicine until he can be seen by his physician on Wednesday, 12/31, at his previously scheduled appointment. . Family/friend interactions No family at bedside. . Advance Directives Living Will: Never completed Health Care Surrogate: Copy in medical record Advance Directive Specifics Date completed: 12/27/17 . Health Care Surrogate(s): Coretta Lazaro, his SO is his HCS. . Documented care wishes: No living will completed. . Objective Vital Signs Date Time Temp Pulse Resp B/P (MAP) Pulse Ox O2 Delivery O2 Flow Rate FiO2 12/28/17 12:00 98.8 88 16 99/72 (81) 95 12/28/17 12:00 92 12/28/17 08:00 90 12/28/17 08:00 98.0 89 16 101/74 (83) 95 12/28/17 04:00 98.2 93 20 100/60 (73) 94 12/27/17 20:00 98.8 94 20 128/64 (85) 92 12/27/17 16:10 97.8 86 20 103/71 (82) 96 12/27/17 16:09 12/27/17 15:00 88 22 98/57 (71) 95 Room Air Intake & Output 12/28/17 12/28/17 07:00 19:00 Intake Total 960 ml Output Total 1200 ml Balance -240 ml Intake Oral 960 ml Output Urine Total 1200 ml Physical Exam CONSTITUTIONAL/GENERAL: This is a thin, male, in no acute distress. TUBES/LINES/DRAINS: PIV SKIN: No jaundice, rashes, or lesions. Ecchymoses on upper extremities. No wounds seen anteriorly. Skin temperature appropriate. Not diaphoretic. HEAD: Atraumatic. Normocephalic. EYES: Pupils equal and round and reactive. Extraocular motions intact. No scleral icterus. No injection or drainage. Fundi not examined. ENT: Hearing grossly normal. Nose without bleeding or purulent drainage. Throat without visible erythema, exudates, masses, or lesions. NECK: Trachea midline. Supple, nontender. No palpable thyroid enlargement or nodularity. CARDIOVASCULAR: Regular rate and rhythm without murmurs, gallops, or rubs. No JVD. Peripheral pulses symmetric. RESPIRATORY/CHEST: Symmetric, unlabored respirations. Lungs clear to auscultation bilaterally GASTROINTESTINAL: Abdomen soft, non-tender, nondistended. No hepato-splenomegaly , or palpable masses. No guarding. Bowel sounds present. GENITOURINARY: Without palpable bladder distension. MUSCULOSKELETAL: Extremities without clubbing, cyanosis, or edema. No joint tenderness or effusion noted. No calf tenderness. No mottling or clubbing. Right thumb with partial amputation, exposed bone, mild erythema. LYMPHATICS: No palpable cervical or supraclavicular adenopathy. NEUROLOGICAL: Awake and alert. Motor and sensory grossly within normal limits. Follows commands. Moves all extremities. PSYCHIATRIC: Mild anxiety, no apparent hallucinations or other psychotic thought process. . Diagnostic Tests Laboratory Laboratory Tests Test 12/27/17 10:30 12/27/17 11:00 12/27/17 14:25 12/27/17 19:25 White Blood Count 5.8 TH/MM3 (4.0-11.0) Red Blood Count 4.04 MIL/MM3 (4.50-5.90) Hemoglobin 9.5 GM/DL (13.0-17.0) Hematocrit 30.6 % (39.0-51.0) Mean Corpuscular Volume 75.6 FL (80.0-100.0) Mean Corpuscular Hemoglobin 23.5 PG (27.0-34.0) Mean Corpuscular Hemoglobin Concent 31.1 % (32.0-36.0) Red Cell Distribution Width 18.9 % (11.6-17.2) Platelet Count 118 TH/MM3 (150-450) Mean Platelet Volume 9.4 FL (7.0-11.0) Neutrophils (%) (Auto) 69.7 % (16.0-70.0) Lymphocytes (%) (Auto) 18.1 % (9.0-44.0) Monocytes (%) (Auto) 11.1 % (0.0-8.0) Eosinophils (%) (Auto) 0.6 % (0.0-4.0) Basophils (%) (Auto) 0.5 % (0.0-2.0) Neutrophils # (Auto) 4.1 TH/MM3 (1.8-7.7) Lymphocytes # (Auto) 1.1 TH/MM3 (1.0-4.8) Monocytes # (Auto) 0.6 TH/MM3 (0-0.9) Eosinophils # (Auto) 0.0 TH/MM3 (0-0.4) Basophils # (Auto) 0.0 TH/MM3 (0-0.2) CBC Comment DIFF FINAL Differential Comment Erythrocyte Sedimentation Rate 22 mm/hr (0-15) Prothrombin Time 12.9 SEC (9.8-11.6) Prothromb Time International Ratio 1.3 RATIO Activated Partial Thromboplast Time 37.9 SEC (24.3-30.1) Blood Urea Nitrogen 8 MG/DL (7-18) Creatinine 0.77 MG/DL (0.60-1.30) Random Glucose 124 MG/DL (74-106) Total Protein 6.7 GM/DL (6.4-8.2) Albumin 2.7 GM/DL (3.4-5.0) Calcium Level 7.6 MG/DL (8.5-10.1) Phosphorus Level 2.6 MG/DL (2.5-4.9) Magnesium Level 1.9 MG/DL (1.5-2.5) Alkaline Phosphatase 196 U/L (45-117) Aspartate Amino Transf (AST/SGOT) 35 U/L (15-37) Alanine Aminotransferase (ALT/SGPT) 16 U/L (12-78) Total Bilirubin 1.3 MG/DL (0.2-1.0) Sodium Level 131 MEQ/L (136-145) Potassium Level 3.4 MEQ/L (3.5-5.1) Chloride Level 97 MEQ/L (98-107) Carbon Dioxide Level 26.3 MEQ/L (21.0-32.0) Anion Gap 8 MEQ/L (5-15) Estimat Glomerular Filtration Rate 113 ML/MIN (>89) Lactic Acid Level 2.3 mmol/L (0.4-2.0) 1.0 mmol/L (0.4-2.0) Direct Bilirubin 0.6 MG/DL (0.0-0.2) Indirect Bilirubin 0.8 MG/DL (0.0-0.8) Total Creatine Kinase 93 U/L (39-308) Troponin I LESS THAN 0.02 NG/ML Lipase 143 U/L (73-393) Urine Color YELLOW (YELLW/STRAW) Urine Turbidity CLEAR (CLEAR) Urine pH 6.0 (5.0-8.5) Urine Specific [place] 1.013 (1.002-1.035) Urine Protein TRACE mg/dL (NEG-TRACE) Urine Glucose (UA) NEG mg/dL (NEG) Urine Ketones NEG mg/dL (NEG) Urine Occult Blood NEG (NEG) Urine Nitrite NEG (NEG) Urine Bilirubin NEG (NEG) Urine Urobilinogen 4.0 MG/DL (LESS THAN Urine Leukocyte Esterase NEG (NEG) Urine RBC 1 /hpf (0-3) Urine WBC LESS THAN 1 /hpf (0-5) Urine Mucus FEW /lpf (OCC) Microscopic Urinalysis Comment CATH-CULT NOT IND Urine Opiates Screen NEG (NEG) Urine Barbiturates Screen NEG (NEG) Urine Amphetamines Screen NEG (NEG) Urine Benzodiazepines Screen POS (NEG) Urine Cocaine Screen NEG (NEG) Urine Cannabinoids Screen NEG (NEG) Test 12/28/17 05:40 White Blood Count 3.9 TH/MM3 (4.0-11.0) Red Blood Count 3.65 MIL/MM3 (4.50-5.90) Hemoglobin 8.7 GM/DL (13.0-17.0) Hematocrit 27.6 % (39.0-51.0) Mean Corpuscular Volume 75.6 FL (80.0-100.0) Mean Corpuscular Hemoglobin 23.9 PG (27.0-34.0) Mean Corpuscular Hemoglobin Concent 31.6 % (32.0-36.0) Red Cell Distribution Width 18.3 % (11.6-17.2) Platelet Count 110 TH/MM3 (150-450) Mean Platelet Volume 9.6 FL (7.0-11.0) Neutrophils (%) (Auto) 66.6 % (16.0-70.0) Lymphocytes (%) (Auto) 20.5 % (9.0-44.0) Monocytes (%) (Auto) 11.2 % (0.0-8.0) Eosinophils (%) (Auto) 1.2 % (0.0-4.0) Basophils (%) (Auto) 0.5 % (0.0-2.0) Neutrophils # (Auto) 2.6 TH/MM3 (1.8-7.7) Lymphocytes # (Auto) 0.8 TH/MM3 (1.0-4.8) Monocytes # (Auto) 0.4 TH/MM3 (0-0.9) Eosinophils # (Auto) 0.0 TH/MM3 (0-0.4) Basophils # (Auto) 0.0 TH/MM3 (0-0.2) CBC Comment DIFF FINAL Differential Comment Blood Urea Nitrogen 9 MG/DL (7-18) Creatinine 0.67 MG/DL (0.60-1.30) Random Glucose 83 MG/DL (74-106) Total Protein 6.0 GM/DL (6.4-8.2) Albumin 2.2 GM/DL (3.4-5.0) Calcium Level 7.5 MG/DL (8.5-10.1) Alkaline Phosphatase 182 U/L (45-117) Aspartate Amino Transf (AST/SGOT) 23 U/L (15-37) Alanine Aminotransferase (ALT/SGPT) 13 U/L (12-78) Total Bilirubin 1.0 MG/DL (0.2-1.0) Sodium Level 135 MEQ/L (136-145) Potassium Level 3.8 MEQ/L (3.5-5.1) Chloride Level 100 MEQ/L (98-107) Carbon Dioxide Level 26.0 MEQ/L (21.0-32.0) Anion Gap 9 MEQ/L (5-15) Estimat Glomerular Filtration Rate 133 ML/MIN (>89) Result Diagram: 12/28/17 0540 12/28/17 0540 Microbiology Microbiology Date/Time Source Procedure Growth Status 12/27/17 10:30 Blood Peripheral Aerobic Blood Culture - Preliminary NO GROWTH IN 1 DAY Resulted 12/27/17 10:30 Blood Peripheral Anaerobic Blood Culture - Preliminary NO GROWTH IN 1 DAY Resulted 12/27/17 10:25 Blood Peripheral Aerobic Blood Culture - Preliminary NO GROWTH IN 1 DAY Resulted 12/27/17 10:25 Blood Peripheral Anaerobic Blood Culture - Preliminary NO GROWTH IN 1 DAY Resulted Imaging Last Impressions Chest X-Ray 12/27/17 1005 Signed Impressions: CONCLUSION: Density right upper lobe. Recommend medical treatment and follow-up with serial x-rays to ensure complete resolution. Hand X-Ray 12/27/17 0000 Signed Impressions: CONCLUSION: Previous amputation of the right thumb. No acute findings. Assessment and Plan Disease Oriented Problem List: (1) Suspected endocarditis (2) Gram-positive bacteremia (3) History of intravenous drug use in remission (4) Sepsis (5) Chronic systolic CHF (congestive heart failure) Symptom Scale: (1) Dyspnea and respiratory abnormalities (2) Cough (3) Fever Pertinent Non-Medical Issues Psychosocial:He was born in [place] and moved to [place] in the late . 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 He has 3 children 8, 10 and 15, who live in [place], but he has no contact with them. He has lived with his SO for 18 years. Spiritual: Holiness hortensia. Legal: DNR and HCS on chart. Ethical issues impacting care: None noted. . Important Contacts Family: Louis Christianson Significant other: Stephanie Lazaro . Prognosis His prognosis is poor. 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 Without surgery, this will likely be recurrent. He has been on hospice services with [facility] and [facility] several times and has either revoked or been disqualified several times. This will be discussed with the hospice team for their determination as to his acceptance. . Code Status: No Code Plan PLAN: Legal decision maker: Patient is currently capacitated to make his own decisions and has completed a HCS form naming his girlfriend, Coretta Lazaro, as his HCS in the case of his incapacitation. Goals: Comfort CODE STATUS: DNR SYMPTOMS: * Dyspnea:He is mildly dyspneic at rest and states it worsens with activity, is constant and improved by Xanax. He is receiving furosemide, xanax and albuterol for symptoms. At this time his symptoms are controlled at rest. No additional recommendations at this time. * Pain: Pain exists primarily in his right thumb which has been identified as osteomyelitis by Dr. Decker. He has been prescribed oxycodone 5-10 mg p.o. every 4 hours as needed for pain. He has received 1 dose. * Fever: Suspected recurrent endocarditis. Blood cultures from 12/25 visit show staph epidermidis with susceptibility to Bactrim and Levaquin. Blood cultures drawn 12/27 are negative 1 day. He has thus far received a azithromycin, Levaquin and vancomycin since the 12/25 blood cultures were drawn. He began refusing antibiotics today. He remains afebrile since hospital admission and is requesting discharge. Palliative care will continue to follow the patient during hospital course as condition evolves, to assist patient/decision-maker with understanding of their medical conditions, weighing benefits/burdens of treatment options, for clarification of goals of treatment. Additionally will assist with any symptoms of palliative concern. . Donna Boswell December 28, 2017 2:59 pm
--- NOTE | 2017-12-28 17:35 | ECHRPT ---
Indication: SEPSIS CONCLUSIONS The left ventricular systolic function is normal with an estimated ejection fraction in the range of 55-60%. Left ventricular diastolic function parameters are normal. There is a flattened septum in diastole consistent with right ventricle volume overload. The right ventricle is moderate to severely dilated. Annular dilatation of the tricuspid valve. Free flowing tricuspid regurgitation. Posterior leaflet appears constricted, while the anterior leaflet appears flail, doubt vegetation bu t can't rule out. BP: 101 / 74 HR: 83 Rhythm: Sinus MEASUREMENTS (Male / Female) Normal Values Technical Quality:Fair 2D ECHO LV Diastolic Diameter PLAX 3.7 cm 4.2 - 5.9 / 3.9 - 5.3 cm LV Systolic Diameter PLAX 2.8 cm IVS Diastolic Thickness 1.0 cm 0.6 - 1.0 / 0.6 - 0.9 cm LVPW Diastolic Thickness 1.0 cm 0.6 - 1.0 / 0.6 - 0.9 cm LV Relative Wall Thickness 0.5 LVOT Diameter 2.0 cm LA Systolic Diameter LX 4.0 cm 3.0 - 4.0 / 2.7 - 3.8 cm LV Ejection Fraction MOD 4C 60.9 % LV Cardiac Index MOD 4C 2332.7 cm/minm LV Ejection Fraction 4C AL 61.2 % LV Cardiac Index 4C AL 2429.5 cm/minm M-MODE Aortic Root Diameter MM 2.1 cm LA Systolic Diameter MM 3.9 cm LA Ao Ratio MM 1.9 AV Cusp Separation MM 2.1 cm DOPPLER AV Peak Velocity 138.0 cm/s AV Peak Gradient 7.6 mmHg LVOT Peak Velocity 113.0 cm/s LVOT Peak Gradient 5.1 mmHg AV Area Cont Eq pk 2.6 cm MV Area PHT 3.3 cm Mitral E Point Velocity 68.6 cm/s Mitral A Point Velocity 71.1 cm/s Mitral E to A Ratio 1.0 LV E' Lateral Velocity 23.1 cm/s Mitral E to LV E' Lateral Ratio 3.0 LV E' Septal Velocity 13.4 cm/s Mitral E to LV E' Septal Ratio 5.1 PV Peak Velocity 61.1 cm/s PV Peak Gradient 1.5 mmHg FINDINGS LEFT VENTRICLE Normal left ventricular size. Wall thickness is measured at the upper limits of normal. The left ventricular systolic function is normal with an estimated ejection fraction in the range of 55-60%. Left ventricular diastolic function parameters are normal. There is a flattened septum in diastole consistent with right ventricle volume overload. RIGHT VENTRICLE The right ventricle is moderate to severely dilated. LEFT ATRIUM The left atrial size is normal. RIGHT ATRIUM The right atrial size is [id number] dilated. ATRIAL SEPTUM The interatrial septum not well visualized. AORTA The aortic root and proximal ascending aorta are normal in size on limited imaging. MITRAL VALVE Structurally normal mitral valve. No mitral valve stenosis or regurgitation. AORTIC VALVE Trileaflet aortic valve. No aortic valve stenosis or regurgitation. TRICUSPID VALVE Annular dilatation of the tricuspid valve. Free flowing tricuspid regurgitation. Posterior leaflet appears constricted, while the anterior leaflet appears flail, doubt vegetation bu t can't rule out. PULMONARY VALVE Trivial pulmonary valve regurgitation. VESSELS The inferior vena cava was not well visualized. PERICARDIUM No pericardial effusion. Anand Mendoza DO (Electronically Signed) Final Date:28 Dec 2017 17:35
[2017-12-29] MEDS ORDERED: PHARMACY ORDERED LAB ONE (10:45)
[2017-12-29 13:21] LABS: MITOGEN MINUS NIL RESULT ND (()); NIL RESULT ND (()); QUANTIFERON TB GOLD + RESULT ND (()); TB ANTIGEN MINUS NIL ND (())
== END 2017-12-28 15:37 | disposition home or self-care (01) | DRG 871 ==
LOC: NEPC 09:48 → NEDA 13:27 → N04A 16:27
PROVIDERS: ADMIT Internal Medicine; ATTEND Internal Medicine
DX: A41.9 Sepsis, unspecified organism (principal); J18.9 Pneumonia, unspecified organism; G93.40 Encephalopathy, unspecified; D61.818 Other pancytopenia; I38 Endocarditis, valve unspecified; D68.9 Coagulation defect, unspecified; J44.0 Chronic obstructive pulmonary disease with (acute) lower respiratory infection; I50.22 Chronic systolic (congestive) heart failure; R04.2 Hemoptysis; M86.8X4 Other osteomyelitis, hand; R65.20 Severe sepsis without septic shock; F13.10 Sedative, hypnotic or anxiolytic abuse, uncomplicated; F17.210 Nicotine dependence, cigarettes, uncomplicated; F41.9 Anxiety disorder, unspecified; F32.9 Major depressive disorder, single episode, unspecified; Z51.5 Encounter for palliative care; Z66 Do not resuscitate; Z88.0 Allergy status to penicillin; Z88.6 Allergy status to analgesic agent; Z89.021 Acquired absence of right finger(s); Z91.14 Patient's other noncompliance with medication regimen; Z91.19 Patient's noncompliance with other medical treatment and regimen
CPT/HCPCS: 71045; 71046; 73120; 80053; 80307; 81001; 82247; 82248; 82550; 83605; 83690; 83735; 84100; 84484; 85025; 85610; 85652; 85730; 86403; 86480; 87040; 87077; 87186; 87205; 87804; 93005; 93306; 94664; 96365; 96367; J3370; J7040; J7050